=== PATIENT | female | born 1945 | race Caucasian/White ===

== ENCOUNTER 2020-04-16 18:52 | Emergency (ER) | payer MEDICARE, SELFPAY ==
--- NOTE | ~2020-04-16 | XR_ITS ---
EXAMINATION: XR chest 1V portable EXAM DATE: 04/16/2020 19:50 INDICATION: Weakness, confusion. TECHNIQUE: Portable AP frontal chest x-ray was obtained. Comparison is made to prior examination from 04/25/2019. FINDINGS: The lungs are clear. There are no pleural effusions. The cardiomediastinal silhouette is within normal limits. There is no pneumothorax suspected. The bones and soft tissues are unremarkab le. IMPRESSION: No acute cardiopulmonary findings. Reviewed, dictated and finalized at location A.
--- NOTE | ~2020-04-16 | CT_ITS ---
EXAMINATION: CT brain wo con EXAM DATE: 04/16/2020 19:46 INDICATION: 2-3 days of confusion. TECHNIQUE: Spiral CT of the head was performed without contrast. Axial, coronal and sagittal images were reviewed. The dose-length product (DLP) for this examination was 605.33 mGy-cm. The exposure w as tailored according to patient size, and iterative reconstruction (ASIR) was used as additional dos e reduction technique. Comparison is made to prior examination from 09/30/2018 . FINDINGS: There is no acute intraparenchymal hemorrhage. No evidence of intraparenchymal brain mass lesion. No evidence of acute infarction. Please note that initial head CT has limited sensitivity f or small or acute infarctions. There is an old right internal capsular lacunar infarction, but new c ompared to 2018. There is moderate periventricular and subcortical hypodensity, nonspecific but prob ably related to small vessel ischemic disease. There is ventricular prominence out of proportion to sulci which is suspected most likely central atrophy rather than hydrocephalus. Normal pressure hyd rocephalus cannot be excluded (clinical triad ataxia/gait disturbance, dementia, urinary incontinence ). There is intracranial carotid arteriosclerosis. There are no extra-axial collections. There is no mass effect or midline shift. The orbits are unremarkable. Soft tissue is unremarkable. The vi sualized sinuses and mastoid air cells are well aerated. IMPRESSION: 1. No acute intracranial findings. 2. 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 3. Old right internal capsular lacunar infarction. Reviewed, dictated and finalized at location A.
[2020-04-16 18:58] VITALS: BP 153/69; PULSE 64; RESP 18; TEMP 36.7; O2SAT 100
--- NOTE | 2020-04-16 19:07 | ECG_ITS ---
Measurements Intervals [place] Rate: 61 P: 14 RI: 164 QRS: -55 QRSD: 82 T: 22 QT: 409 QTc: 415 Interpretive Statements SINUS RHYTHM LEFT AXIS DEVIATION VOLTAGE CRITERIA FOR LVH CANNOT RULE OUT SEPTAL INFARCT, AGE INDETERMINATE BASELINE ARTIFACT- I, II, III, AVR, AVL, AVF, V1 ABNORMAL ECG Electronically Signed On 04-17-2020 6:56:24 CDT by New Jimenez D.O.
--- NOTE | 2020-04-16 19:08 | ED.AMS ---
HPI - Altered Mental Status General Chief Complaint: Altered Mental Status Stated Complaint: ams Time Seen by Provider: 04/16/20 18:57 History of Present Illness HPI narrative: Catalina Ca presents with her for episodes of confusion. These have been occurring 2-3 times a week, and last 6 to 8 hours. She has a history of stroke, but does not follow with a neurologist. She has a psychiatrist, and multiple psych meds. Her was together her medicine daily. She does not smoke drink or do drugs. She is generally weak and uses a wheelchair. She can self transfer. She is oriented here, and has no complaints. She has not been sick this week. She denies cough fever vomiting diarrhea. MD complaint: altered mental status and confusion Timing confirmed by: spouse Severity: moderate Consistency of symptoms: waxing and waning Context: other (History of stroke.) Associated symptoms: denies other symptoms Related Data Home Medications Medication Instructions Recorded Confirmed clonazepam 0.5 mg tablet 0.5 mg PO QID tablet 04/08/20 Allergies Allergy/AdvReac Type Severity Reaction Status Date / Time clindamycin Allergy Mild Verified 04/25/19 19:28 hydrocodone Allergy Mild Verified 04/25/19 19:28 amoxicillin Allergy Unknown Verified 02/23/13 14:41 ampicillin Allergy Unknown Verified 09/23/15 15:38 erythromycin base Allergy Unknown Verified 09/23/15 15:38 Macrolide Antibiotics Allergy Unknown Verified 04/25/19 19:28 morphine Allergy Unknown Verified 04/25/19 19:28 NSAIDS (Non-Steroidal Allergy Unknown Verified 09/23/15 15:38 Anti-Inflamma Penicillins Allergy Unknown Verified 04/25/19 19:28 adhesive tape AdvReac Mild BLISTERS Verified 04/25/19 19:28 Review of Systems Review of Systems: Narrative: CONSTITUTIONAL: Denies fever, chills, or sweats. EYES: Denies visual changes, redness, or discharge. ENT: Denies rhinorrhea, congestion, sore throat, or otalgia. CARDIOVASCULAR: Denies chest pain, palpitations, or edema. RESPIRATORY: Denies cough or dyspnea. GASTROINTESTINAL: Denies abdominal pain, nausea, vomiting, or diarrhea. GENITOURINARY: Denies dysuria or hematuria. SKIN: Denies rash or itching. MUSCULOSKELETAL: Denies back pain, joint pain, or myalgia. NEUROLOGIC: Denies headache, numbness, or weakness. PSYCHIATRIC: Denies anxiety or depression. [facility] Past Medical History Medical History History of stroke Family History Family History (Updated 06/19/16 @ 23:19 by DOCTOR UNKNOWN) Mother Hypertension Family history of diabetes mellitus in first degree relative Family history of pancreatic cancer Family history of heart disease in male family member before age 55 Family history of rheumatoid arthritis Family history of neuropathy Father Family history of diabetes mellitus in first degree relative Family history of coronary artery disease Family history of heart disease in male family member before age 55 Sibling Family history of coronary artery disease Hypertension Family history of heart disease in male family member before age 55 Social History Social History (Updated 04/16/20 @ 19:11 by Le Buckley MD) Smoking status: Never smoker Alcohol intake: never Substance use: never Exam Narrative: Exam Narrative: GENERAL: Well-appearing, well-nourished, and in no acute distress. Very thin hair. Unable to sit up without assistance. HEAD: Normocephalic, atraumatic. EYES: PERRLA and EOMI. ENT: Nares clear, no rhinorrhea or epistaxis. Mucous membranes moist. NECK: Supple. CHEST: Clear to auscultation. No respiratory distress. HEART: Regular rate and rhythm. No murmur heard. Normal peripheral pulses. ABDOMEN: Soft, nontender, nondistended, normal active bowel sounds. EXTREMITIES: No edema. SKIN: cool, dry, no rash. NEURO: No focal deficits. Alert and oriented x3. PSYCH: Normal mood and affect. Course Reevaluation
[2020-04-16 19:13] VITALS: BP 153/69; PULSE 65; RESP 23; TEMP 36.8; O2SAT 100
--- NOTE | 2020-04-16 19:50 | PC.NURSE ---
ATTEMPTED TO DRAW PATIENT'S BLOOD. BLOOD DRAW WAS UNSUCCESSFUL. RN NOTIFIED.
--- NOTE | 2020-04-16 20:04 | PC.NURSE ---
Pt was stuck multiple times unable to obtain blood work
--- NOTE | 2020-04-16 20:05 | PC.NURSE ---
Lab was called in order to obtain blood work and was unsuccessful
[2020-04-16 20:23] LABS: Basophils Percent Auto 0.5 % (0.2-1.2); Eosinophils Percent Auto 0.9 % (0-4.4); Hematocrit 38.8 % (37.0-47.0); Hemoglobin 12.6 g/dL (12.0-15.0); Immature Granulocyte Absolute 0.02 K/mm3 (0.00-0.031); Immature Granulocyte Percent A 0.5 % (0-0.5); Lymphocytes Absolute Auto 0.87 K/mm3 (0.9-3.2); Mean Corpuscular HGB Conc 32.5 g/dl (32-36); Mean Corpuscular Hemoglobin 30.5 pg (26-34); Mean Corpuscular Volume 93.9 fl (80-100); Mean Platelet Volume 10.3 fl (7.4-10.4); Monocytes Absolute Auto 0.3 K/mm3 (0.1-0.6); Monocytes Percent Auto 7.1 % (2.6-8.5); Neutrophils Absolute Auto 3.1 K/mm3 (1.3-6.7); Platelet Count Result 270 k/mm3 (150-375); Red Blood Count 4.13 M/mm3 (4.2-5.4); Red Cell Distribution Width 12.9 % (11.5-14.5); White Blood Count 4.4 K/mm3 (4.5-10.0)
--- NOTE | 2020-04-16 20:25 | PC.NURSE ---
pt placed on commode for urine sample
--- NOTE | 2020-04-16 20:30 | PC.NURSE ---
pt unable to void at this time. pt returned to commode
[2020-04-16 20:36] LABS: Alanine Aminotransferase 14 U/L (4-35); Albumin Level 4.2 g/dL (3.5-5.1); Alkaline Phosphatase 70 U/L (38-126); Aspartate Amino Transferase 21 U/L (14-36); Bilirubin,Total 0.5 mg/dL (0.2-1.3); Blood Urea Nitrogen 23 mg/dL (7-17); Calcium 9.5 mg/dL (8.4-10.2); Carbon Dioxide 25 mmol/L (22-30); Chloride 105 mmol/L (98-107); Estimated CRCL calculation 34 ml/min; Estimated Glomerular Filt Rate 40; Glucose 91 mg/dL (65-105); Potassium 4.9 mmol/L (3.4-5.0); Sodium 139 mmol/L (137-145)
--- NOTE | 2020-04-16 20:42 | PC.NURSE ---
pt called out and thinks she cannot void at this time.
[2020-04-16 20:48] LABS: Troponin I < 0.012 ng/mL (0.000-0.034)
[2020-04-16 21:13] LABS: Add Urine Microscopic? YES; Appearance Urine Cloudy (Clear); Bacteria Urine 4+ /hpf; Bilirubin Urine Negative (Negative); Blood Urine Negative (Negative); Budding Yeast Urine Present /hpf; Color Urine Yellow (Yellow); Glucose Urine UA Negative (Negative); Ketones Urine Negative (Negative); Leukocyte Esterase Ur 3+ LEU/UL (Negative); Mucus Urine Rare /lpf; Nitrate Urine Negative (Negative); Protein Urine Negative (Negative); Specific Grav Ur 1.017 (1.001-1.035); Squamous Epithelial Cell Urine Occasional /hpf (Few); WBC Urine >75 /hpf
[2020-04-16 21:30] VITALS: BP 150/87; PULSE 62; RESP 12; O2SAT 100
[2020-04-16 21:38] LABS: Amphetamine Screen Urine Negative (Negative); Barbiturate Screen Urine Negative (Negative); Benzodiazepines Screen Urine Negative (Negative); Cannabinoid Screen Urine Negative (Negative); Cocaine Screen Urine Negative (Negative); Methadone Screen Urine Negative (Negative); Opiate Screen Urine Negative (Negative); Phencyclidine Screen Urine Negative (Negative)
[2020-04-16 22:00] VITALS: BP 153/59; PULSE 64; RESP 12; O2SAT 100
== END 2020-04-16 22:00 | disposition home or self-care (01) ==
PROVIDERS: Emergency Provider Emergency Medicine; PCP Family Medicine
DX: N39.0 Urinary tract infection, site not specified (principal); R41.82 Altered mental status, unspecified; R53.1 Weakness; Z86.73 Personal history of transient ischemic attack (TIA), and cerebral infarction without residual deficits; Z79.899 Other long term (current) drug therapy
CPT/HCPCS: 36415; 51701; 70450; 71045; 80053; 80307; 81001; 84443; 84484; 85025; 87077; 87086; 87088; 87186; 93005; 99284; A9270

== ENCOUNTER 2021-02-19 22:03 | Emergency (ER) | payer MEDICARE, SELFPAY ==
[2021-02-19 22:02] VITALS: BP 147/78; PULSE 70; RESP 16; TEMP 36.8; O2SAT 100
--- NOTE | 2021-02-19 22:08 | ED.AMS ---
HPI - Altered Mental Status General Chief Complaint: Altered Mental Status Stated Complaint: confusion Time Seen by Provider: 02/19/21 22:06 History of Present Illness HPI narrative: 75 yo female w/ h/o recurrent UTI, depression, anxiety, htn presents to the ED for a change in perception. She reports that this evening while at home she did not feel like she was at home. She says that she lives in a trailer and she felt as though it was in the wrong place, this was despite knowing where she was the whole time. She has had similar symptoms in the past due to UTIs. She also reports dysuria, lower abdominal cramping, and urinary frequency. Related Data Allergies Allergy/AdvReac Type Severity Reaction Status Date / Time clindamycin Allergy Mild Unknown Verified 12/02/20 14:09 hydrocodone Allergy Mild Unknown Verified 12/02/20 14:09 amoxicillin Allergy Unknown Unknown Verified 12/02/20 14:09 ampicillin Allergy Unknown Unknown Verified 12/02/20 14:09 erythromycin base Allergy Unknown Unknown Verified 12/02/20 14:09 Macrolide Antibiotics Allergy Unknown Unknown Verified 12/02/20 14:09 morphine Allergy Unknown Unknown Verified 12/02/20 14:09 NSAIDS (Non-Steroidal Allergy Unknown Unknown Verified 12/02/20 14:09 Anti-Inflamma Penicillins Allergy Unknown Unknown Verified 12/02/20 14:09 adhesive tape AdvReac Mild BLISTERS Verified 12/02/20 14:09 Review of Systems Review of Systems: All systems reviewed & are unremarkable except as noted in HPI and below Constitutional: Constitutional: Denies chills, Denies fever(s) and Denies weakness ENT: Reports system reviewed and no additional complaints, except as documented Cardiovascular: Cardiovascular: Denies chest pain Respiratory: Respiratory: Denies dyspnea Gastrointestinal: Gastrointestinal: Reports abdominal pain, Denies constipation, Denies diarrhea, Denies nausea and Denies vomiting Genitourinary: Genitourinary: Denies hematuria, Reports nocturia, Reports dysuria and Denies flank pain Musculoskeletal: Musculoskeletal: Denies back pain Neurologic: Reports confusion, Denies dizziness and Denies weakness PMFSH Past Medical History Medical History BMI 23.0-23.9, adult Delusional disorder Encephalopathy History of stroke Urinary tract infection, recurrent Family History Family History Mother Hypertension Family history of diabetes mellitus in first degree relative Family history of pancreatic cancer Family history of heart disease in male family member before age 55 Family history of rheumatoid arthritis Family history of neuropathy Father Family history of diabetes mellitus in first degree relative Family history of coronary artery disease Family history of heart disease in male family member before age 55 Sibling Family history of coronary artery disease Hypertension Family history of heart disease in male family member before age 55 Social History Social History Smoking status: Never smoker Second hand tobacco smoke exposure: Yes Alcohol intake: never Substance use: never Additional occupation/education comments: [employer] Gender identity (if verbalized by the patient): Female Exam Const: General: no acute distress and alert Orientation/consciousness: patient oriented x3 HENMT: Head: normal to inspection Resp: Effort & Inspection: normal respiratory effort Auscultation: clear to auscultation bilaterally Cardio: Rate: regular rate Rhythm: regular rhythm GI: Inspection: non-distended GI Palp: Yes Soft to palpation, Yes Tenderness to palpation present (GI) (suprapubic), No Guarding due to palpation present (GI) and No Rebound tenderness present Skin: General skin exam: normal color Neuro: General: patient oriented x3, moves all extremities, no focal m
[2021-02-19 22:40] LABS: Basophils Percent Auto 0.5 % (0.2-1.2); Eosinophils Absolute Auto 0.2 K/mm3 (0-0.3); Eosinophils Percent Auto 2.4 % (0-4.4); Hematocrit 40.4 % (37.0-47.0); Hemoglobin 13.3 g/dL (12.0-15.0); Immature Granulocyte Absolute 0.04 K/mm3 (0.00-0.031); Immature Granulocyte Percent A 0.7 % (0-0.5); Lymphocytes Absolute Auto 1.34 K/mm3 (0.9-3.2); Lymphocytes Percent Auto 21.9 % (18.3-44.2); Mean Corpuscular HGB Conc 32.9 g/dl (32-36); Mean Corpuscular Hemoglobin 30.6 pg (26-34); Mean Corpuscular Volume 92.9 fl (80-100); Mean Platelet Volume 9.8 fl (7.4-10.4); Monocytes Absolute Auto 0.5 K/mm3 (0.1-0.6); Monocytes Percent Auto 7.5 % (2.6-8.5); Neutrophils Absolute Auto 4.1 K/mm3 (1.3-6.7); Platelet Count Result 301 k/mm3 (150-375); Red Blood Count 4.35 M/mm3 (4.2-5.4); Red Cell Distribution Width 13.2 % (11.5-14.5); White Blood Count 6.1 K/mm3 (4.5-10.0)
[2021-02-19] MEDS: SODIUM CHLORIDE 0.9% IV 1,000 ML 999 ML IV CONT (22:47)
[2021-02-19 22:52] LABS: Alanine Aminotransferase 15 U/L (4-35); Albumin Level 4.2 g/dL (3.5-5.1); Alkaline Phosphatase 63 U/L (38-126); Anion Gap 6 mmol/L (8-16); Aspartate Amino Transferase 22 U/L (14-36); Bilirubin,Total 0.6 mg/dL (0.2-1.3); Blood Urea Nitrogen 30 mg/dL (7-17); Calcium 9.4 mg/dL (8.4-10.2); Carbon Dioxide 29 mmol/L (22-30); Chloride 104 mmol/L (98-107); Estimated CRCL calculation 27 ml/min; Estimated Glomerular Filt Rate 37; Glucose 125 mg/dL (65-105); Sodium 139 mmol/L (137-145)
[2021-02-19 23:00] VITALS: BP 150/63; PULSE 65; RESP 15; O2SAT 99
--- NOTE | 2021-02-19 23:00 | PC.NURSE ---
Patient gotten up to bedside commode/patient refuses straight cath-blanket around shoulders, patients feet placed on step stool and covered with towel-call [place] at bedside within reach. at bedside
--- NOTE | 2021-02-19 23:20 | PC.NURSE ---
Patient gotten back on stretcher-unable to urinate-still refuses straight cath
[2021-02-20] VITALS: BP 150/63; PULSE 67; RESP 16; O2SAT 99
[2021-02-20 01:00] VITALS: BP 137/101; PULSE 66; RESP 16; O2SAT 100
[2021-02-20 01:30] LABS: Add Urine Microscopic? YES; Appearance Urine Cloudy (Clear); Bacteria Urine 4+ /hpf; Bilirubin Urine Negative (Negative); Blood Urine Negative (Negative); Color Urine Yellow (Yellow); Glucose Urine UA Negative (Negative); Ketones Urine Negative (Negative); Leukocyte Esterase Ur 3+ LEU/UL (Negative); Mucus Urine Rare /lpf; Nitrate Urine Positive (Negative); Protein Urine Negative (Negative); Specific Grav Ur 1.014 (1.001-1.035); Squamous Epithelial Cell Urine Occasional /hpf (Few); WBC Urine >75 /hpf
[2021-02-20] MEDS: SODIUM CHLORIDE 0.9% IV 1,000 ML 999 ML IV CONT (01:30)
[2021-02-20 02:00] VITALS: BP 123/90; PULSE 65; RESP 16; O2SAT 99
[2021-02-20] MEDS: CIPROFLOXACIN 500 MG TAB PO (02:33)
== END 2021-02-20 02:40 | disposition home or self-care (01) ==
PROVIDERS: Emergency Provider Emergency Medicine; PCP Family Medicine
DX: N39.0 Urinary tract infection, site not specified (principal); Z87.440 Personal history of urinary (tract) infections
CPT/HCPCS: 36415; 51701; 80053; 81001; 85025; 87077; 87086; 87088; 87186; 96360; 96361; 99283; A9270; J7030

== ENCOUNTER 2021-11-19 17:39 | Emergency (ER) | payer MEDICARE, SELFPAY ==
--- NOTE | ~2021-11-19 | XR_ITS ---
EXAMINATION: XR hip RT 2V w AP pelvis INDICATION: Right groin pain TECHNIQUE: AP view of the pelvis and two views of the right hip are obtained. COMPARISON: 08/26/2018 FINDINGS: Bone alignment is normal. There is moderate osteoarthritis of the hips. Calcified atheroscl erosis is noted. IMPRESSION: 1. No acute osseous abnormality. Reviewed, dictated and finalized at location [facility] [employer]
[2021-11-19 18:48] VITALS: BP 121/90; PULSE 90; RESP 16; TEMP 36.6; O2SAT 100
[2021-11-19 20:43] VITALS: BP 135/63; PULSE 86; RESP 18; O2SAT 99
[2021-11-19 22:34] VITALS: BP 157/94; PULSE 90; RESP 18; O2SAT 99
[2021-11-19] MEDS: CYCLOBENZAPRINE HCL 10 MG TABLET PO (22:34)
[2021-11-19 23:28] VITALS: PULSE 88; RESP 18
--- NOTE | 2021-11-19 23:54 | PC.NURSE ---
report to stacy shepherd at [facility]
--- NOTE | 2021-11-20 00:41 | ED.GENADULT ---
HPI - General Adult General Chief complaint: Extremity Injury, Lower Stated complaint: fall/hip pain Time Seen by Provider: 11/19/21 21:08 History of Present Illness HPI narrative: Patient is a 76-year-old female who presents ER with right hip pain. She is oriented to self and place. She reports that she fell earlier today however retirement reports she fell a month ago. She has been getting tramadol for chronic pain but is not helping. No other complaints at this time. Related Data Allergies Allergy/AdvReac Type Severity Reaction Status Date / Time clindamycin Allergy Mild Unknown Verified 03/10/21 16:50 hydrocodone Allergy Mild Unknown Verified 03/10/21 16:50 amoxicillin Allergy Unknown Unknown Verified 03/10/21 16:50 ampicillin Allergy Unknown Unknown Verified 03/10/21 16:50 erythromycin base Allergy Unknown Unknown Verified 03/10/21 16:50 Macrolide Antibiotics Allergy Unknown Unknown Verified 03/10/21 16:50 morphine Allergy Unknown Unknown Verified 03/10/21 16:50 NSAIDS (Non-Steroidal Allergy Unknown Unknown Verified 03/10/21 16:50 Anti-Inflamma Penicillins Allergy Unknown Unknown Verified 03/10/21 16:50 adhesive tape AdvReac Mild BLISTERS Verified 03/10/21 16:50 Review of Systems Review of Systems: ROS unobtainable: Yes unobtainable due to mental status PMFSH Past Medical History Medical History (Updated 11/20/21 @ 00:55 by Mamadou Benjamin MD) Ataxia BMI 23.0-23.9, adult Delusional disorder Encephalopathy History of stroke Urinary tract infection, recurrent Family History Family History Mother Hypertension Family history of diabetes mellitus in first degree relative Family history of pancreatic cancer Family history of heart disease in male family member before age 55 Family history of rheumatoid arthritis Family history of neuropathy Father Family history of diabetes mellitus in first degree relative Family history of coronary artery disease Family history of heart disease in male family member before age 55 Sibling Family history of coronary artery disease Hypertension Family history of heart disease in male family member before age 55 Social History Social History Second hand tobacco smoke exposure: Yes Alcohol intake: never Substance use: never Additional occupation/education comments: [employer] Gender identity (if verbalized by the patient): Female Exam Narrative: GENERAL: Chronically ill-appearing, well-nourished, and in no acute distress. HEAD: Normocephalic, atraumatic. CHEST: Clear to auscultation. No respiratory distress. HEART: Regular rate and rhythm. Normal peripheral pulses. ABDOMEN: Soft, nontender, nondistended. EXTREMITIES: Focused exam right lower extremity reveals normal extension and ability to forward flex to 90 degrees until she has pain. No redness or tenderness around the joint. No shortening the leg. SKIN: Warm, dry, no rash. NEURO: Alert and oriented x2. PSYCH: Normal mood and affect. Course Course Emergency Course: Unremarkable evaluation of the hip. Patient given a muscle relaxer. Discharge back to retirement. Limited pain treatment due to patient's multiple allergies. Vital Signs Vital signs: Vital Signs Temperature 97.9 F 11/19/21 18:48 Pulse Rate 90 11/19/21 18:48 Respiratory Rate 16 11/19/21 18:48 Blood Pressure 121/90 11/19/21 18:48 Pulse Oximetry 100 11/19/21 18:48 Temperature 97.9 F 11/19/21 18:48 Pulse Rate 88 11/19/21 23:28 Respiratory Rate 18 11/19/21 23:28 Blood Pressure 157/94 H 11/19/21 22:34 Pulse Oximetry 99 11/19/21 22:34 Medical Decision Making Vital Signs Vital Signs: Vital Signs Temperature 97.9 F 11/19/21 18:48 Pulse Rate 90 11/19/21 18:48 Respiratory Rate 16 11/19/21 18:48 Blood Pressure 121/90 11/19/21 18:48 Pulse Oximetry
--- NOTE | 2021-11-20 01:24 | PC.NURSE ---
waiting transport to [facility]
[2021-11-20 01:57] VITALS: BP 152/71; PULSE 88; RESP 18; O2SAT 98
--- NOTE | 2021-11-20 02:02 | PC.NURSE ---
Addendum entered by Diya Cruz 11/20/21 03:07: [facility] UPDATED ETA: 0315 Addendum entered by Diya Cruz 11/20/21 02:02: [facility] UPDATED ETA: 0215 Original Note: CALLED [facility] @0002 ACCEPTED TRANSFER: ETA 0043
== END 2021-11-20 03:34 ==
PROVIDERS: Emergency Provider Emergency Medicine; PCP Family Medicine
DX: M25.551 Pain in right hip (principal); G89.29 Other chronic pain; Z86.73 Personal history of transient ischemic attack (TIA), and cerebral infarction without residual deficits; Z87.440 Personal history of urinary (tract) infections; Z77.22 Contact with and (suspected) exposure to environmental tobacco smoke (acute) (chronic)
CPT/HCPCS: 73502; 99283; A9270

== ENCOUNTER 2022-11-08 17:37 | Emergency (ER) | payer MEDICARE, SELFPAY ==
[2022-11-08] VITALS (21 sets, daily range): BP systolic 83–127; BP diastolic 51–103; PULSE 79–88; RESP 10–22; TEMP 36.7; O2SAT 97
[2022-11-08 17:52] LABS: Glucose Point of Care 215 mg/dl (65-105)
[2022-11-08 18:09] LABS: Basophils Percent Auto 0.6 % (0.2-1.2); Eosinophils Absolute Auto 0.2 K/mm3 (0-0.3); Eosinophils Percent Auto 2.4 % (0-4.4); Hematocrit 37.7 % (37.0-47.0); Hemoglobin 12.6 g/dL (12.0-15.0); Immature Granulocyte Absolute 0.08 K/mm3 (0.00-0.031); Immature Granulocyte Percent A 1.1 % (0-0.5); Lymphocytes Absolute Auto 1.46 K/mm3 (0.9-3.2); Lymphocytes Percent Auto 20.3 % (18.3-44.2); Mean Corpuscular HGB Conc 33.4 g/dl (32-36); Mean Corpuscular Hemoglobin 30.2 pg (26-34); Mean Corpuscular Volume 90.4 fl (80-100); Mean Platelet Volume 11.5 fl (7.4-10.4); Monocytes Absolute Auto 0.5 K/mm3 (0.1-0.6); Monocytes Percent Auto 7.5 % (2.6-8.5); Neutrophils Absolute Auto 4.9 K/mm3 (1.3-6.7); Neutrophils Percent Auto 68.1 % (45.5-73.1); Platelet Count Result 237 k/mm3 (150-375); Red Blood Count 4.17 M/mm3 (4.2-5.4); White Blood Count 7.2 K/mm3 (4.5-10.0)
[2022-11-08 18:24] LABS: Beta-Hydroxybutyrate/Acetoacetate 0.11 mmol/L (0.02-0.27)
[2022-11-08 19:05] LABS: Hemoglobin A1C > 14.0 % (<5.7)
[2022-11-08 19:08] LABS: Alanine Aminotransferase 17 U/L (6-35); Albumin Level 3.5 g/dL (3.5-5.1); Alkaline Phosphatase 103 U/L (38-126); Anion Gap 6 mmol/L (8-16); Aspartate Amino Transferase 23 U/L (14-36); Bilirubin,Total 0.5 mg/dL (0.2-1.3); Blood Urea Nitrogen 19 mg/dL (7-17); Carbon Dioxide 28 mmol/L (22-30); Chloride 97 mmol/L (98-107); Estimated CRCL calculation 43 ml/min; Estimated Glomerular Filt Rate 54; Glucose 226 mg/dL (65-110); Magnesium 1.5 mg/dL (1.6-2.3); Phosphorus 3.6 mg/dL (2.5-4.5); Potassium 4.2 mmol/L (3.4-5.0); Sodium 131 mmol/L (137-145)
--- NOTE | 2022-11-08 21:34 | ED.GENADULT ---
HPI - General Adult General Chief complaint: Recheck/Abnormal Lab/Rx Stated complaint: hyperglycemia Time Seen by Provider: 11/08/22 21:20 History of Present Illness HPI narrative: Patient is a 77-year-old female who presents ER with hyperglycemia. Blood sugar at her residential was over 600. She was given some insulin and sent here for further evaluation. Chart review shows med list that includes metformin 1000 mg twice daily patient reports she has history of diabetes but apparently the residential reports she has no previous history. Patient has no complaints of pain at this time. She is oriented x3 but has poor insight into what is occurring due to her chronic medical conditions. Related Data Allergies Allergy/AdvReac Type Severity Reaction Status Date / Time clindamycin Allergy Mild Unknown Verified 03/10/21 16:50 hydrocodone Allergy Mild Unknown Verified 03/10/21 16:50 amoxicillin Allergy Unknown Unknown Verified 03/10/21 16:50 ampicillin Allergy Unknown Unknown Verified 03/10/21 16:50 erythromycin base Allergy Unknown Unknown Verified 03/10/21 16:50 Macrolide Antibiotics Allergy Unknown Unknown Verified 03/10/21 16:50 morphine Allergy Unknown Unknown Verified 03/10/21 16:50 NSAIDS (Non-Steroidal Allergy Unknown Unknown Verified 03/10/21 16:50 Anti-Inflamma Penicillins Allergy Unknown Unknown Verified 03/10/21 16:50 adhesive tape AdvReac Mild BLISTERS Verified 03/10/21 16:50 Review of Systems Review of Systems: All systems reviewed & are unremarkable except as noted in HPI and below Constitutional: Constitutional: Denies chills, Denies fatigue and Denies fever(s) Cardiovascular: Cardiovascular: Denies chest pain and Denies radiating jaw, neck or arm pain Respiratory: Respiratory: Denies cough and Denies dyspnea Gastrointestinal: Gastrointestinal: Denies abdominal pain, Denies nausea and Denies vomiting Musculoskeletal: Musculoskeletal: Denies back pain, Denies arthralgias and Denies muscle cramps Neurologic: Denies focal weakness and Denies numbness PMFSH Past Medical History Medical History (Updated 11/08/22 @ 22:52 by Mamadou Benjamin MD) Ataxia BMI 23.0-23.9, adult Delusional disorder Encephalopathy History of stroke Urinary tract infection, recurrent Family History Family History Mother Hypertension Family history of diabetes mellitus in first degree relative Family history of pancreatic cancer Family history of heart disease in male family member before age 55 Family history of rheumatoid arthritis Family history of neuropathy Father Family history of diabetes mellitus in first degree relative Family history of coronary artery disease Family history of heart disease in male family member before age 55 Sibling Family history of coronary artery disease Hypertension Family history of heart disease in male family member before age 55 Social History Social History Second hand tobacco smoke exposure: Yes Alcohol intake: never Substance use: never Additional occupation/education comments: [employer] Gender identity (if verbalized by the patient): Female Exam Narrative: GENERAL: Well-appearing, well-nourished, and in no acute distress. HEAD: Normocephalic, atraumatic. EYES: PERRL and EOMI. ENT: Mucous membranes moist. CHEST: Clear to auscultation. No respiratory distress. HEART: Regular rate and rhythm. Normal peripheral pulses. ABDOMEN: Soft, nontender, nondistended. EXTREMITIES: Normal range of motion. No edema. NEURO: Alert and oriented x3. PSYCH: Normal mood and affect. Course Course Emergency Course: Blood glucose improving, no ketones, pt in no distress. D/c back to residential. Vital Signs Vital signs: Vital Signs Temperature 98.1 F 11/08/22 17:43 Pulse Rate 84 11/08/22 17:43 Respiratory Rate 17 11/08/22 17:43
[2022-11-08 22:43] LABS: Glucose Point of Care 316 mg/dl (65-105)
--- NOTE | 2022-11-08 23:28 | PC.NURSE ---
called [facility] to request transport. ETA midnight.
[2022-11-09 00:01] VITALS: BP 118/50; PULSE 78; RESP 14
[2022-11-09 00:02] VITALS: PULSE 78; RESP 15
--- NOTE | 2022-11-09 00:05 | PC.NURSE ---
[facility] here
[2022-11-09 00:12] VITALS: BP 114/54
--- NOTE | 2022-11-09 00:22 | PC.NURSE ---
[facility] called at this time. Spoke with Lisandra, nursing staff and explained d/c instructions. Staff verbalized understanding at this time.
--- NOTE | 2022-11-09 00:23 | PC.NURSE ---
Gabriela , EMS,here for pt d/c transfer back to [facility] at this time.
== END 2022-11-09 00:24 ==
PROVIDERS: Emergency Medicine; Emergency Provider Emergency Medicine; PCP Family Medicine
DX: E11.9 Type 2 diabetes mellitus without complications (principal)
CPT/HCPCS: 36415; 80053; 82010; 82948; 83036; 83735; 84100; 85025; 99283

== ENCOUNTER 2022-12-20 20:38 | Emergency (ER) | payer MEDICARE, MEDICAID, SELFPAY ==
--- NOTE | ~2022-12-20 | CT_ITS ---
EXAMINATION: CT cervical spine wo con DATE: 12/20/2022 21:30 INDICATION: Neck pain. Fall. TECHNIQUE: Computed tomography (CT) of the cervical spine was performed without intravenous contrast. Automated exposure control and iterative reconstruction technique were employed. The dose-length pro duct was 185.29 mGy-cm. COMPARISON: None FINDINGS: There is 2 mm retrolisthesis of C2 on C3. There is 7 degrees levocurvature of cervical spin e. There are changes of anterior fusion from C4 to C6 with healed interbody bone graft. There is mode rately decreased disc height at C2-C3 and C3-C4, severely decreased disc height at C6-C7, and moderat heraclio decreased disc height at C7-T1. The following disc levels are specifically discussed: C2-C3: There is mild bilateral uncovertebral joint osteoarthritis. There is mild bilateral facet join t osteoarthritis. There is mild bilateral neural foraminal stenosis. There is mild central canal sten osis. C3-C4: There is mild bilateral uncovertebral joint osteoarthritis. There is severe bilateral facet benji int osteoarthritis. There is moderate right and mild left neural foraminal stenosis. There is mild ce ntral canal stenosis. C4-C5: There is mild lateral uncovertebral joint hypertrophy. There is mild bilateral facet joint ost eoarthritis. There is no neural foraminal stenosis. There is mild central canal stenosis. C5-C6: There is mild bilateral uncovertebral joint hypertrophy. There is mild bilateral facet joint h ypertrophy. There is mild left neural foraminal stenosis. There is no central canal stenosis. C6-C7: There is severe bilateral uncovertebral joint osteoarthritis. There is severe bilateral facet joint osteoarthritis. There is mild bilateral neural foraminal stenosis. There is mild central canal stenosis. C7-T1: There is mild bilateral uncovertebral joint osteoarthritis. There is severe bilateral facet benji int osteoarthritis. There is mild bilateral neural foraminal stenosis. There is no central canal sten osis. IMPRESSION: 1. No fracture. 2. Severe cervical spondylosis. 3. Anterior fusion procedure from C4 to C6. Reviewed, dictated and finalized at location A. DINGS AND GROUNDS DIRECTOR
--- NOTE | ~2022-12-20 | CT_ITS ---
EXAMINATION: CT brain wo con DATE: 12/20/2022 21:29 INDICATION: Head injury. TECHNIQUE: Computed tomography (CT) of the head was performed without intravenous contrast. The mA wa s adjusted according to patient size. Iterative reconstruction technique was employed. The dose-lengt h product was 605.33 mGy-cm. COMPARISON: Head CT 04/16/2020 FINDINGS: There is a small old infarct in right cerebellum. There are old infarcts in the bilateral b sofia ganglia and anterior limb right internal capsule. There are scattered areas of low attenuation i n the cerebral white matter, which is within normal limits for the patient's age. There is no intracr anial hemorrhage, acute infarction, or abnormal intracranial mass lesion. The ventricles are normal i n size. The orbits are normal. There is a right frontal scalp hematoma. There is mild mucosal thicken ing in the paranasal sinuses. The mastoid air cells are normal. IMPRESSION: 1. 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 Reviewed, dictated and finalized at location A. TRAINER IMPRESSION: 1. 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
--- NOTE | ~2022-12-20 | XR_ITS ---
EXAMINATION: XR shoulder RT min 2V DATE: 12/20/2022 21:20 INDICATION: Right shoulder pain. TECHNIQUE: 4 views of right shoulder were obtained. COMPARISON: None. FINDINGS: Bone alignment is normal. No fracture. There is mild osteoarthritis of acromioclavicular benji int and glenohumeral joint. IMPRESSION: 1. Mild polyarticular osteoarthritis. Reviewed, dictated and finalized at location A. ING WORKER
--- NOTE | ~2022-12-20 | XR_ITS ---
EXAMINATION: XR chest 1V portable DATE: 12/20/2022 21:20 INDICATION: Chest pain. Fall. TECHNIQUE: A single frontal view of the chest was obtained. COMPARISON: Chest single view 04/16/2020 FINDINGS: There is no pneumonia, pleural effusion, or pneumothorax. The heart size is normal. Surgica l clips in the right upper quadrant are likely from cholecystectomy. IMPRESSION: 1. No acute cardiopulmonary disease. Reviewed, dictated and finalized at location A. ER COMPLIANCE REPRESENTATIVE
--- NOTE | ~2022-12-20 | XR_ITS ---
EXAMINATION: XR shoulder LT min 2V DATE: 12/20/2022 21:20 INDICATION: Left shoulder pain. TECHNIQUE: 3 views of left shoulder were obtained. COMPARISON: Left shoulder radiographs 09/16/2016 FINDINGS: Bone alignment is normal. No fracture. There is mild osteoarthritis of glenohumeral joint a nd acromioclavicular joint. IMPRESSION: 1. Mild polyarticular osteoarthritis. Reviewed, dictated and finalized at location A. BI DEVELOPER
[2022-12-20 20:43] VITALS: BP 170/92; PULSE 96; RESP 19; TEMP 36.9; O2SAT 100
[2022-12-20 20:51] VITALS: BP 170/92; PULSE 101; RESP 14; O2SAT 100
--- NOTE | 2022-12-20 20:54 | ED.FALL ---
HPI - Fall General Chief Complaint: Fall Stated Complaint: glf History of Present Illness HPI Narrative: 77-year-old female presented to the emergency department from a local alf after having an unwitnessed ground-level fall. Patient states she was reaching for something and fell causing her to strike her head. Patient denies any loss of consciousness but does have a hematoma on her right forehead. Patient is also complaining of neck shoulder and chest wall tenderness. Patient is a poor historian and is unable to say whether this pain is acute or chronic. Patient denies any abdominal pain or any other pain or injury of the extremities. Patient does have history of TIAs. Patient has history of hypertension and diabetes. Related Data Allergies Allergy/AdvReac Type Severity Reaction Status Date / Time clindamycin Allergy Mild Unknown Verified 12/20/22 21:31 hydrocodone Allergy Mild Unknown Verified 12/20/22 21:31 amoxicillin Allergy Unknown Unknown Verified 12/20/22 21:31 ampicillin Allergy Unknown Unknown Verified 12/20/22 21:31 erythromycin base Allergy Unknown Unknown Verified 12/20/22 21:31 Macrolide Antibiotics Allergy Unknown Unknown Verified 12/20/22 21:31 morphine Allergy Unknown Unknown Verified 12/20/22 21:31 NSAIDS (Non-Steroidal Allergy Unknown Unknown Verified 12/20/22 21:31 Anti-Inflamma Penicillins Allergy Unknown Unknown Verified 12/20/22 21:31 adhesive tape AdvReac Mild BLISTERS Verified 12/20/22 21:31 Review of Systems Review of Systems: CONSTITUTIONAL: Denies fever, chills, or sweats. EYES: Denies visual changes, redness, or discharge. ENT: Denies rhinorrhea, congestion, sore throat, or otalgia. CARDIOVASCULAR: Denies chest pain, palpitations, or edema. RESPIRATORY: Denies cough or dyspnea. GASTROINTESTINAL: Denies abdominal pain, nausea, vomiting, or diarrhea. GENITOURINARY: Denies dysuria or hematuria. SKIN: Denies rash or itching. MUSCULOSKELETAL: See HPI NEUROLOGIC: Denies headache, numbness, or weakness. [facility] Past Medical History Medical History (Updated 12/21/22 @ 00:35 by Wallace Gaona MD) Ataxia BMI 23.0-23.9, adult Delusional disorder Encephalopathy History of stroke Urinary tract infection, recurrent Family History Family History Mother Hypertension Family history of diabetes mellitus in first degree relative Family history of pancreatic cancer Family history of heart disease in male family member before age 55 Family history of rheumatoid arthritis Family history of neuropathy Father Family history of diabetes mellitus in first degree relative Family history of coronary artery disease Family history of heart disease in male family member before age 55 Sibling Family history of coronary artery disease Hypertension Family history of heart disease in male family member before age 55 Social History Social History Second hand tobacco smoke exposure: Yes Alcohol intake: never Substance use: never Living arrangements: with family Occupation/Education: retired Additional occupation/education comments: [employer] Gender identity (if verbalized by the patient): Female Exam Narrative: APPEARANCE: Well appearing, no pain, no distress, well-nourished. HEAD: Patient does have a hematoma on the left forehead. No laceration. Patient is in a c-collar EYES: PERRLA/EOMI, conjunctivae clear. NOSE: Normal no drainage EARS:TMS clear with good light reflex. NECK: Supple. No adenopathy, no masses. RESPIRATORY: Airway patent, respirations nonlabored. Clear to auscultation bilaterally, no rales, rhonchi, wheezing. CARDIOVASCULAR: Regular rate and rhythm without murmurs rubs or gallops. ABDOMINAL: Soft, nontender, nondistended, normal bowel sounds MUSCULOSKELETAL: Tenderness to the shoulders bilaterally. No deformity or crepitus. NEURO
[2022-12-20 21:01] VITALS: BP 172/89; PULSE 115; RESP 15; O2SAT 100
[2022-12-20] MEDS: fentaNYL CITRATE INJ (*CRX) 100 MCG/2 ML VIAL 50 MCG IV PUSH (22:29)
== END 2022-12-20 22:45 ==
LOC: ANHED 21:59
PROVIDERS: Emergency Provider Emergency Medicine; PCP Internal Medicine
DX: S00.83XA Contusion of other part of head, initial encounter (principal); S49.92XA Unspecified injury of left shoulder and upper arm, initial encounter; S49.91XA Unspecified injury of right shoulder and upper arm, initial encounter; R07.89 Other chest pain; I10 Essential (primary) hypertension; E11.9 Type 2 diabetes mellitus without complications; F22 Delusional disorders; Z86.73 Personal history of transient ischemic attack (TIA), and cerebral infarction without residual deficits; Z87.440 Personal history of urinary (tract) infections; Z77.22 Contact with and (suspected) exposure to environmental tobacco smoke (acute) (chronic); Z79.84 Long term (current) use of oral hypoglycemic drugs; W18.39XA Other fall on same level, initial encounter; Z98.1 Arthrodesis status; M19.012 Primary osteoarthritis, left shoulder; M19.011 Primary osteoarthritis, right shoulder; M47.812 Spondylosis without myelopathy or radiculopathy, cervical region
CPT/HCPCS: 70450; 71045; 72125; 73030; 96374; 99284; J3010

== ENCOUNTER 2025-08-12 11:47 | Inpatient (IN) | payer MEDICARE, MEDICAID, SELFPAY ==
[2025-08-12] VITALS (8 sets, daily range): BP systolic 122–158; BP diastolic 47–89; PULSE 62–71; RESP 12–14; TEMP 36.5–36.8; O2SAT 94–100
--- NOTE | ~2025-08-12 | XR_ITS ---
Examination: XR chest 1V Clinical History: lethargy Comparison: 12/20/2022 Technique: Portable AP Findings: Heart size normal. Lungs clear. No acute bony abnormality. IMPRESSION: 1. No acute cardiopulmonary findings given portable technique. Reviewed, dictated and finalized at location R.
--- NOTE | ~2025-08-12 | CT_ITS ---
EXAMINATION: CT brain wo naa, 08/12/2025 15:30 CDT HISTORY: Difficult to arouse COMPARISON: No comparisons available. Technique: Axial images obtained of the brain without contrast. One or more of the following dose reduction techniques were used: automated exposure control, adjustment of the mA and/or kV according to patient size, use of iterative reconstruction technique. Findings: Right cerebellar lacunar infarcts. No bilateral basal ganglia lacunar infarcts. No acute infarct or hemorrhage. No midline shift or mass effect. No extra-axial fluid collections. Mastoid air cells unremarkable. Sinuses and orbits unremarkable. No acute fracture. No significant facial or scalp soft tissue swelling evident. No radiopaque foreign body is seen. Impression: 1.No acute intracranial abnormality. Reviewed, dictated and finalized at location A. Impression: 1.No acute intracranial abnormality.
--- NOTE | 2025-08-12 11:58 | ED.AMS ---
HPI - Altered Mental Status General Chief Complaint: Altered Mental Status Stated Complaint: AMS Time Seen by Provider: 08/12/25 11:53 Source: EMS Mode of arrival: EMS Limitations: altered mental status and clinical condition History of Present Illness HPI narrative: 80 years old white female came from senior care by ambulance with a chief complaint of difficult to be aroused. halfway staff said patient was sitting in her wheelchair unarousable, only responsive to pain. EMS report that patient became arousable to verbal but was lethargic On arrival to the ED patient is awake, oriented to her name only. Denying any symptoms. Related Data Home Medications ?Medication ?Instructions ?Recorded ?Confirmed ?Last Taken ?Type Al hyd-Mg tr-alg ac-sod bicarb 80 2 tablet PO PRN 08/12/25 08/12/25 Unknown History mg-14.2 mg chewable tablet acetaminophen 500 mg tablet 500 mg PO TID PRN pain 08/12/25 08/12/25 Unknown History duloxetine 30 mg capsule,delayed 30 mg PO DAILY 08/12/25 08/12/25 Unknown History release duloxetine 60 mg capsule,delayed 60 mg PO DAILY 08/12/25 08/12/25 Unknown History release furosemide 20 mg tablet 20 mg PO DAILY 08/12/25 08/12/25 Unknown History gabapentin 100 mg capsule 200 mg PO TID 08/12/25 08/12/25 Unknown History glucagon 1 mg solution for 1 mg IM PRN 08/12/25 08/12/25 Unknown History injection (Glucagon Emergency Kit) insulin aspart U-100 100 unit/mL See Rx Instructions .Route .COMPLEX 08/12/25 08/12/25 Unknown History subcutaneous solution insulin glargine-yfgn 100 unit/mL 25 unit subcut QPM 08/12/25 08/12/25 Unknown History subcutaneous solution lansoprazole 15 mg capsule,delayed 15 mg PO DAILY 08/12/25 08/12/25 Unknown History release levothyroxine 50 mcg tablet 75 mcg PO DAILY 08/12/25 08/12/25 Unknown History mirtazapine 7.5 mg tablet 7.5 mg PO HS 08/12/25 08/12/25 Unknown History tramadol 50 mg tablet 50 mg PO BID 08/12/25 08/12/25 Unknown History Allergies Allergy/AdvReac Type Severity Reaction Status Date / Time clindamycin Allergy Mild Unknown Verified 08/12/25 18:51 hydrocodone Allergy Mild nausea Verified 08/12/25 18:51 amoxicillin Allergy Unknown Unknown Verified 08/12/25 18:51 ampicillin Allergy Unknown Unknown Verified 08/12/25 18:51 erythromycin base Allergy Unknown Unknown Verified 08/12/25 18:51 Macrolide Antibiotics Allergy Unknown Unknown Verified 08/12/25 18:51 morphine Allergy Unknown nausea Verified 08/12/25 18:51 NSAIDS (Non-Steroidal Allergy Unknown Unknown Verified 08/12/25 18:51 Anti-Inflamma Penicillins Allergy Unknown Unknown Verified 08/12/25 18:51 adhesive tape AdvReac Mild BLISTERS Verified 08/12/25 18:51 Review of Systems Review of Systems: All systems reviewed & are unremarkable except as noted in HPI and below PMFSH Past Medical History Medical History Ataxia BMI 23.0-23.9, adult Urinary tract infection, recurrent Delusional disorder Encephalopathy History of stroke Family History Family History Mother Hypertension Family history of diabetes mellitus in first degree relative Family history of pancreatic cancer Family history of heart disease in male family member before age 55 Family history of rheumatoid arthritis Family history of neuropathy Father Family history of diabetes mellitus in first degree relative Family history of coronary artery disease Family history of heart disease in male family member before age 55 Sibling Family history of coronary artery disease Hypertension Family history of heart disease in male family member before age 55 Social History Social History Smoking status: Never smoker Second hand tobacco smoke exposure: No Alcohol intake: unknown Substance use: unknown Substance use type: does not use Living arrangements: with family Occupation/Education: retired Additional occupation/education comments: [employer] Gender identity (if verbalized by the patient): Female Spiritual care concerns: No Exam Narrative: General appearance: Well-developed, well-nourished, does not look in pain or distress Skin: Normal color Head: Normocephalic, nontraumatic Eyes: Clear conjunctiva ENT: Oropharynx normal, ears normal, nose normal Neck: Supple, nontender Chest and respiratory: Airway patent, no respiratory distress, no accessory muscle use Heart: Regular rate/rhythm Abdomen: Soft, nontender, no organomegaly, quiet bowel sounds Vascular: Normal peripheral pulses, normal capillary refill. Musculoskeletal: Unable to move any extremity Neurologic: Alert and oriented to her name only Course Vital Signs Vital signs: Vital Signs Temperature 36.5 C 08/12/25 11:45 Pulse Rate 62 08/12/25 11:45 Respiratory Rate 14 08/12/25 11:45 Blood Pressure 134/47 L 08/12/25 11:45 Pulse Oximetry 100 08/12/25 11:45 Oxygen Delivery Room Air 08/12/25 11:45 Temperature 36.4 C L 08/14/25 05:25 Pulse Rate 80 08/14/25 08:00 Respiratory Rate 16 08/14/25 08:00 Blood Pressure 143/54 H 08/14/25 05:25 Pulse Oximetry 94 08/14/25 08:00 Oxygen Delivery Room Air 08/14/25 08:00 Fraction of Inspired Oxygen 21 08/14/25 08:00 MDM - Altered Mental Status MDM Narrative Medical decision making narrative: Patient came to the ED with difficult to be aroused and lethargy Vital signs are unremarkable Physical examination showing a patient not in pain or distress, oriented to her name only Differential diagnosis include dehydration, electrolyte imbalance, urinary tract infection, depression related symptoms, CVA. Blood workup today includes CBC, CMP, troponin, blood culture, coags, TSH showed BN 31, creatinine 1.24, glucose 242 lactic acid 2.1 Urinalysis showed evidence of infection Chest x-ray showed no acute abnormalities EKG showed normal sinus rhythm at 61 beats per minute, occasional PVCs, no previous EKG available for comparison CT head without contrast showed no acute abnormality Diagnosis lethargy, confusion secondary to urinary tract infection Admit to hospitalist Differential Diagnosis Differential diagnosis: Likely other (As above) Medical Records Attestation: I reviewed the patient's medical records. Lab Data Attestation: I reviewed the patient's lab results. 08/14/25 06:14 08/14/25 06:14 Labs: Lab Results 08/12/25 08/12/25 08/12/25 Range/Units 11:54 12:17 12:18 WBC 6.6 (4.5-10.0) K/mm3 RBC 4.03 L (4.2-5.4) M/mm3 Hgb 12.1 (12.0-15.0) g/dL Hct 37.9 (37.0-47.0) % MCV 94.0 (80-100) fl MCH 30.0 (26-34) pg MCHC 31.9 L (32-36) g/dl RDW 13.4 (11.5-14.5) % Plt Count 226 (150-375) k/mm3 MPV 10.7 H (7.4-10.4) fl Immature Gran % (Auto) 0.5 (0-0.5) % Neut % (Auto) 66.6 (45.5-73.1) % Lymph % (Auto) 22.6 (18.3-44.2) % [place] % (Auto) 7.1 (2.6-8.5) % Eos % (Auto) 2.7 (0-4.4) % Baso % (Auto) 0.5 (0.2-1.2) % Lymph # (Auto) 1.50 (0.9-3.2) K/mm3 [place] # (Auto) 0.5 (0.1-0.6) K/mm3 Eos # (Auto) 0.2 (0-0.3) K/mm3 Baso # (Auto) 0.0 (0.0-0.1) K/mm3 Abs Immat Gran (auto) 0.03 (0.00-0.031) K/mm3 Absolute Neuts (auto) 4.4 (1.3-6.7) K/mm3 Absolute Nucleated RBC 0.000 (0.0-0.012) K/mm3 Nucleated RBC % 0.0 (0.0-0.2) % PT (11.1-14.7) Seconds INR APTT (22.3-36.8) Seconds Sodium 139 (137-145) mmol/L Potassium 3.9 (3.4-5.0) mmol/L Chloride 100 (98-107) mmol/L Carbon Dioxide 32 H (22-30) mmol/L Anion Gap 7 (4-12) mmol/L BUN 31 H D (7-17) mg/dL Creatinine 1.24 H (0.7-1.0) mg/dL Estim Creat Clear Calc 37 ml/min Estimated GFR 42 L (59 - ) Glucose 258 H (65-110) mg/dL POC Capillary Glucose 243 H (65-105) mg/dl Lactic Acid (0.7-2.0) mmol/L Calcium 9.2 (8.4-10.2) mg/dL Magnesium 1.9 Cancelled (1.6-2.3) mg/dL Total Bilirubin 0.7 (0.2-1.3) mg/dL AST 22 (14-36) U/L ALT 18 (6-35) U/L Alkaline Phosphatase 80 (38-126) U/L Troponin I < 0.012 (0.000-0.034) ng/mL C-Reactive Protein < 0.5 (<1.0) mg/dL Total Protein 7.2 (6.3-8.2) g/dL Albumin 3.8 (3.5-5.1) g/dL TSH 0.354 L Cancelled (0.465-4.680) uIU/mL Urine Color (Yellow) Urine Appearance (Clear) Urine pH (5.0-9.0) Ur Specific [place] (1.001-1.035) Urine Protein (Negative) mg/dL Urine Glucose (UA) (Negative) mg/dL Urine Ketones (Negative) mg/dL Ur Blood (Man) (Negative) Urine Nitrate (Negative) Urine Bilirubin (Negative) Urine Urobilinogen (<2.0) mg/dL Add Ur Microanalysis Leukocyte Esterase Rfl (Negative) ANU/UL Urine RBC (0-2) /hpf Urine WBC (0-3) /hpf Ur Squamous Epith Cells (Few) /hpf Urine Bacteria /hpf Urine Casts 08/12/25 08/12/25 Range/Units 12:46 12:47 WBC (4.5-10.0) K/mm3 RBC (4.2-5.4) M/mm3 Hgb (12.0-15.0) g/dL Hct (37.0-47.0) % MCV (80-100) fl MCH (26-34) pg MCHC (32-36) g/dl RDW (11.5-14.5) % Plt Count (150-375) k/mm3 MPV (7.4-10.4) fl Immature Gran % (Auto) (0-0.5) % Neut % (Auto) (45.5-73.1) % Lymph % (Auto) (18.3-44.2) % [place] % (Auto) (2.6-8.5) % Eos % (Auto) (0-4.4) % Baso % (Auto) (0.2-1.2) % Lymph # (Auto) (0.9-3.2) K/mm3 [place] # (Auto) (0.1-0.6) K/mm3 Eos # (Auto) (0-0.3) K/mm3 Baso # (Auto) (0.0-0.1) K/mm3 Abs Immat Gran (auto) (0.00-0.031) K/mm3 Absolute Neuts (auto) (1.3-6.7) K/mm3 Absolute Nucleated RBC (0.0-0.012) K/mm3 Nucleated RBC % (0.0-0.2) % PT 13.0 (11.1-14.7) Seconds INR 1.0 APTT 25.9 (22.3-36.8) Seconds Sodium (137-145) mmol/L Potassium (3.4-5.0) mmol/L Chloride (98-107) mmol/L Carbon Dioxide (22-30) mmol/L Anion Gap (4-12) mmol/L BUN (7-17) mg/dL Creatinine (0.7-1.0) mg/dL Estim Creat Clear Calc ml/min Estimated GFR (59 - ) Glucose (65-110) mg/dL POC Capillary Glucose (65-105) mg/dl Lactic Acid 2.1 H (0.7-2.0) mmol/L Calcium (8.4-10.2) mg/dL Magnesium (1.6-2.3) mg/dL Total Bilirubin (0.2-1.3) mg/dL AST (14-36) U/L ALT (6-35) U/L Alkaline Phosphatase (38-126) U/L Troponin I (0.000-0.034) ng/mL C-Reactive Protein (<1.0) mg/dL Total Protein (6.3-8.2) g/dL Albumin (3.5-5.1) g/dL TSH (0.465-4.680) uIU/mL Urine Color Yellow (Yellow) Urine Appearance Turbid H (Clear) Urine pH 7.5 (5.0-9.0) Ur Specific [place] 1.017 (1.001-1.035) Urine Protein 1+ H (Negative) mg/dL Urine Glucose (UA) Negative (Negative) mg/dL Urine Ketones Negative (Negative) mg/dL Ur Blood (Man) 1+ H (Negative) Urine Nitrate Positive H (Negative) Urine Bilirubin Negative (Negative) Urine Urobilinogen 1.0 (<2.0) mg/dL Add Ur Microanalysis Reviewed Leukocyte Esterase Rfl 3+ H (Negative) ANU/UL Urine RBC 0-2 (0-2) /hpf Urine WBC >100 H (0-3) /hpf Ur Squamous Epith Cells Few (Few) /hpf Urine Bacteria 4+ H /hpf Urine Casts 3-5 Imaging Data My impression: Impressions Chest X-Ray 08/12/25 13:16 IMPRESSION: 1. No acute cardiopulmonary findings given portable technique. Head CT 08/12/25 15:49 Impression: 1.No acute intracranial abnormality. Radiologist's impression: Impressions Chest X-Ray 08/12/25 13:16 IMPRESSION: 1. No acute cardiopulmonary findings given portable technique. ECG Data EKG #1: Attestation: I personally reviewed and interpreted this ECG as follows: ECG completion date: 08/12/25 Interpretation: Normal sinus rhythm at 61 beats per minute, occasional PVCs, left axis deviation, ventricular hypertrophy and nonspecific ST-T changes, no previous EKG available for comparison Critical Care Time Critical Care Time Critical Care Time: No Discharge Plan Discharge Clinical Impression: Urinary tract infection, CHRISTOPHER (acute kidney injury), Weakness Patient Disposition: Still a Patient Condition: Stable
--- NOTE | 2025-08-12 12:06 | ECG_ITS ---
Test Date: 2025-08-12 12:19:44 Measurements Intervals [place] Rate: 61 P: 0 [place]: 181 QRS: -39 QRSD: 87 T: 67 QT: 423 QTc: 429 Interpretive Statements SINUS RHYTHM WITH OCCASIONAL SUPRAVENTRICULAR PREMATURE COMPLEXES MARKED LEFT AXIS DEVIATION [QRS AXIS < -30] LOW QRS VOLTAGE IN PRECORDIAL LEADS [QRS DEFLECTION < 1.0 mV IN CHEST LEADS] LEFT VENTRICULAR HYPERTROPHY AND ST-T CHANGE [VOLTAGE CRITERIA PLUS ST/T ABNORMALITY] POSSIBLE ANTERIOR MYOCARDIAL INFARCTION , OF INDETERMINATE AGE [30 ms Q WAVE IN V3/V4, OR R < 0.2 mV IN V4] No previous ECG available for comparison Electronically Signed On 08-13-2025 14:11:47 CDT by Orlando Canales M.D.
[2025-08-12 12:23] LABS: Hematocrit 37.9 % (37.0-47.0); Hemoglobin 12.1 g/dL (12.0-15.0); Immature Granulocyte Percent A 0.5 % (0-0.5); Lymphocytes Absolute Auto 1.50 K/mm3 (0.9-3.2); Mean Corpuscular HGB Conc 31.9 g/dl (32-36); Mean Corpuscular Hemoglobin 30.0 pg (26-34); Mean Corpuscular Volume 94.0 fl (80-100); Nucleated Red Blood Cells Absolute Auto 0.000 K/mm3 (0.0-0.012); Nucleated Red Blood Cells Perc 0.0 % (0.0-0.2); Platelet Count Result 226 k/mm3 (150-375); Red Blood Count 4.03 M/mm3 (4.2-5.4); White Blood Count 6.6 K/mm3 (4.5-10.0)
[2025-08-12 12:41] LABS: Alanine Aminotransferase 18 U/L (6-35); Albumin Level 3.8 g/dL (3.5-5.1); Alkaline Phosphatase 80 U/L (38-126); Anion Gap 7 mmol/L (4-12); Aspartate Amino Transferase 22 U/L (14-36); Bilirubin,Total 0.7 mg/dL (0.2-1.3); Blood Urea Nitrogen 31 mg/dL (7-17); CRP < 0.5 mg/dL (<1.0); Calcium 9.2 mg/dL (8.4-10.2); Carbon Dioxide 32 mmol/L (22-30); Chloride 100 mmol/L (98-107); Estimated CRCL calculation 37 ml/min; Estimated Glomerular Filt Rate 42; Glucose 258 mg/dL (65-110); Magnesium 1.9 mg/dL (1.6-2.3); Potassium 3.9 mmol/L (3.4-5.0); Sodium 139 mmol/L (137-145); Total Protein 7.2 g/dL (6.3-8.2)
--- OUTSIDE RECORDS SUMMARY | 2025-08-12 12:42 | XMS_ITS | Patient Health Record ---
Author Organization [facility] [employer] Address [address] [place] [address] Care Team Providers Care Bag Repairer Name Role Phone Alden Danielle Unavailable [phone] Reason For Referral No Information Medications Medication SIG (Take, Route, Frequency, Duration) Notes Start Date End Date Status DULoxetine HCl 60 MG Capsule Delayed Release Particles Oral 05/26/2022 Active Lidocaine HCl (Local Anesth.) 1 % Kit Injection 05/26/2022 Active Ivermectin 3 MG Tablet Oral 05/26/2022 Active Pravastatin Sodium 40 MG Tablet Oral 05/26/2022 Active Nitrofurantoin Monohyd Macro 100 MG Capsule Oral 05/26/2022 Active Cephalexin 500 MG Capsule Oral 05/26/2022 Active Cyclobenzaprine HCl 5 MG Tablet Oral 05/26/2022 Active metFORMIN HCl 1000 MG Tablet Oral 05/26/2022 Active Metoprolol Tartrate 25 MG Tablet Oral 05/26/2022 Active traMADol HCl 50 MG Tablet Oral 05/26/2022 Active QUEtiapine Fumarate 50 MG Tablet Oral 05/26/2022 Active ERTAPENEM 1 gram VIAL (EA) INJECTION *Reorder from Pyreos for eRx and Interaction Alerts* 05/26/2022 Active FLUAD 2019-20 65YR UP(PF)45 MCG(15 MCGX3)/0.5 ML INTRAMUSCULAR SYRINGE *Reorder from Pyreos for eRx and Interaction Alerts* 05/26/2022 Active Lansoprazole 15 MG Capsule Delayed Release Oral 05/26/2022 Active LORazepam 0.5 MG Tablet Oral 05/26/2022 Active Levothyroxine Sodium 50 MCG Tablet Oral 05/26/2022 Active fentaNYL 12 MCG/HR Patch 72 Hour Transdermal 05/26/2022 Active Amoxicillin-Pot Clavulanate 875-125 MG Tablet Oral 05/26/2022 Active fentaNYL 25 MCG/HR Patch 72 Hour Transdermal 05/26/2022 Active Immunizations Vaccine Route Administration Date Status Comme nts Pneumococcal conjugate PCV 13 Unknown 08/30/2017 Admini stered Novel [id number], preservative free Unknown 08/29/2018 Administered Asad Covid-19 Vaccine Unknown 03/30/2021 Administere d Influenza, injectable, MDCK, preservative free Unknown 10/12/2013 Administered Influenza, high dose seasonal Unknown 08/30/2017 Admini stered Influenza virus vaccine, quadrivalent (IIV4), split virus, 0.25 mL dosage Unknown 09/15/2016 Administered Influenza virus vaccine, quadrivalent (IIV4), split virus, 0.25 mL dosage Unknown 09/27/2020 Administered Social History Social History Additional Details Category Social Info Options Details Migrated Social History Migrated Social History Alcohol Intake: None 03/20/2021,Tobacco Years: Never smoker 05/06/2020 Plan Of Treatment No Information Insurance Providers Payer Name Payer Address Payer Phone Subscriber Number Group Number Insured Name Patient Relationship to Insured Coverage Start Date Coverage End Date [employer] Replacemen t/Advantag e - [place] [address] [address] [place] [address] [id number] ANDREINA WILKERSON Self - patient is the insured
[2025-08-12 12:50] LABS: Troponin I < 0.012 ng/mL (0.000-0.034)
[2025-08-12 13:09] LABS: Thyroid Stimulating Hormone 0.354 uIU/mL (0.465-4.680)
[2025-08-12 13:15] LABS: Add Urine Microscopic? YES; Appearance Urine Turbid (Clear); Glucose Urine UA Negative (Negative); Leukocyte Esterase Ur 3+ LEU/UL (Negative); Need Manual Microscopic Reviewed; Nitrate Urine Positive (Negative); Specific Grav Ur 1.017 (1.001-1.035)
[2025-08-12 13:19] LABS: INR 1.0; Prothrombin Time 13.0 Seconds (11.1-14.7)
[2025-08-12 13:21] LABS: Partial Thromboplastin Time 25.9 Seconds (22.3-36.8)
[2025-08-12] MEDS: levoFLOXacin 500 MG/D5W 100 ML 500 MG/100 ML BAG 100 MG IVPB (15:51)
[2025-08-12] MEDS: SODIUM CHLORIDE 0.9% IV 1,000 ML 125 ML IV CONT (17:16)
--- NOTE | 2025-08-12 17:43 | PM.IMHP ---
H&P: HPI History of Present Illness Date/Time: 08/12/25 17:43 Chief Complaint: Altered mental status Narrative: 80-year-old female with a PMHx: of dementia, frequent UTI, currently resides in a long-term care facility, was brought into the emergency room via EMS with complaints may by staff the patient was difficult to be aroused. During interview patient is A&O x2 she tells me that she recently went to nondenominational when she returned home she became very weak, patient also tells me that she currently resides with her parents. Her history is not consistent with chart review. Patient is pleasant, follows commands, she denies any complaints at this time. She is a poor historian, unable to tell me what daily medication she takes at this time, or recall why she is being seen in the hospital. ED workup revealed: Patient arrives to the ED with difficulty to be aroused and lethargy, vital signs are unremarkable, patient exam showed no pain or distress she was only oriented to her name, differential diagnosis were dehydration electrolyte imbalance a blood workup revealed CBC CMP troponin blood culture coags TSH. chest x-ray showed no acute abnormalities, EKG was a normal sinus rhythm at 61 beats per minute occasional PVCs no previous EKG available for comparison CT head without contrast showed no acute abnormality. Patient admitted in the setting of urinary tract infection. Review of Systems Review of Systems: ROS unobtainable: Yes unobtainable due to mental status PMFSH Past Medical History Medical History Ataxia BMI 23.0-23.9, adult Urinary tract infection, recurrent Delusional disorder Encephalopathy History of stroke Family History Family History Mother Hypertension Family history of diabetes mellitus in first degree relative Family history of pancreatic cancer Family history of heart disease in male family member before age 55 Family history of rheumatoid arthritis Family history of neuropathy Father Family history of diabetes mellitus in first degree relative Family history of coronary artery disease Family history of heart disease in male family member before age 55 Sibling Family history of coronary artery disease Hypertension Family history of heart disease in male family member before age 55 Social History Social History Second hand tobacco smoke exposure: Yes Alcohol intake: never Substance use: never Living arrangements: with family Occupation/Education: retired Additional occupation/education comments: [employer] Gender identity (if verbalized by the patient): Female Meds Home Medications and Allergies Home Medications ?Medication ?Instructions ?Recorded ?Confirmed ?Type clonazepam 0.5 mg tablet 0.5 mg PO DAILY PRN anxiety #30 04/30/20 03/10/21 Rx tabs bupropion HCl 150 mg tablet,12 hr 150 mg PO BID #180 tabs 08/08/20 03/10/21 Rx sustained-release citalopram 40 mg tablet 40 mg PO DAILY #90 tabs 08/08/20 03/10/21 Rx levothyroxine 50 mcg tablet 50 mcg PO DAILY #90 tabs 01/27/21 03/10/21 Rx pravastatin 40 mg tablet 40 mg PO DAILY #90 tabs 03/21/21 Rx metformin 1,000 mg tablet 1,000 mg PO BID #180 tabs 04/23/21 Rx metoprolol tartrate 25 mg tablet 25 mg PO BID #60 tabs 04/23/21 Rx cyclobenzaprine 5 mg tablet 5 mg PO TID PRN muscle spasm #14 11/20/21 Rx tabs Allergies Allergy/AdvReac Type Severity Reaction Status Date / Time clindamycin Allergy Mild Unknown Verified 08/12/25 18:51 hydrocodone Allergy Mild nausea Verified 08/12/25 18:51 amoxicillin Allergy Unknown Unknown Verified 08/12/25 18:51 ampicillin Allergy Unknown Unknown Verified 08/12/25 18:51 erythromycin base Allergy Unknown Unknown Verified 08/12/25 18:51 Macrolide Antibiotics Allergy Unknown Unknown Verified 08/12/25 18:51 morphine Allergy Unknown nausea Verified 08/12/25 18:51 NSAIDS (Non-Steroidal Allergy Unknown Unknown Verified 08/12/25 18:51 Anti-Inflamma Penicillins Allergy Unknown Unknown Verified 08/12/25 18:51 adhesive tape AdvReac Mild BLISTERS Verified 08/12/25 18:51 Vital Signs Vital Signs - 24 hr 08/12/25 11:45 08/12/25 12:01 08/12/25 12:04 Temperature 97.7 F 97.7 F Pulse Rate 62 62 Respiratory Rate 14 12 Blood Pressure 134/47 L 122/79 Pulse Oximetry 100 100 100 Oxygen Delivery Room Air Room Air 08/12/25 15:55 Temperature Pulse Rate 66 Respiratory Rate 13 Blood Pressure 135/58 L Pulse Oximetry 100 Oxygen Delivery Exam Narrative: General appearance: Well-developed, well-nourished, does not look in pain or distress Skin: Normal color Head: Normocephalic, nontraumatic Eyes: Clear conjunctiva ENT: Oropharynx normal, ears normal, nose normal Neck: Supple, nontender Chest and respiratory: Airway patent, no respiratory distress, no accessory muscle use Heart: Regular rate/rhythm Abdomen: Soft, nontender, no organomegaly, quiet bowel sounds Vascular: Normal peripheral pulses, normal capillary refill. Musculoskeletal: moves all extremities Neurologic: Alert and oriented to her name only H&P: Results Labs Labs: Short CBC 08/12/25 Range/Units 12:17 WBC 6.6 (4.5-10.0) K/mm3 Hgb 12.1 (12.0-15.0) g/dL Hct 37.9 (37.0-47.0) % Plt Count 226 (150-375) k/mm3 BMP 08/12/25 12:17 Sodium 139 Potassium 3.9 Chloride 100 Carbon Dioxide 32 H BUN 31 H D Creatinine 1.24 H Glucose 258 H Calcium 9.2 Cardiac Enzymes 08/12/25 Range/Units 12:17 Troponin I < 0.012 (0.000-0.034) ng/mL Liver Function 08/12/25 Range/Units 12:17 Total Bilirubin 0.7 (0.2-1.3) mg/dL AST 22 (14-36) U/L ALT 18 (6-35) U/L Alkaline Phosphatase 80 (38-126) U/L Albumin 3.8 (3.5-5.1) g/dL Urine 08/12/25 Range/Units 12:47 Urine Color Yellow (Yellow) Urine Appearance Turbid H (Clear) Urine pH 7.5 (5.0-9.0) Ur Specific [place] 1.017 (1.001-1.035) Urine Protein 1+ H (Negative) mg/dL Urine Glucose (UA) Negative (Negative) mg/dL Pulse Oximetry Attestation: I personally reviewed and interpreted this pulse oximetry as follows: ECG Interpretation: Rate 61 IN 181 QRSd 87 QT 423 QTc 429 --Romayor-- P 0 QRS -39 T 67 SINUS RHYTHM WITH OCCASIONAL SUPRAVENTRICULAR PREMATURE COMPLEXES MARKED LEFT AXIS DEVIATION [QRS AXIS < -30] LOW QRS VOLTAGE IN PRECORDIAL LEADS [QRS DEFLECTION < 1.0 mV IN CHEST LEADS] LEFT VENTRICULAR HYPERTROPHY AND ST-T CHANGE [VOLTAGE CRITERIA PLUS ST/T ABNORMALITY] POSSIBLE ANTERIOR MYOCARDIAL INFARCTION , OF INDETERMINATE AGE [30 ms Q WAVE IN V3/V4, OR R < 0.2 mV IN V4] No previous ECG available for comparison Imaging Chest x-ray: Radiologist's impression: IMPRESSION: 1. No acute cardiopulmonary findings given portable technique. CT scan - head: Radiologist's impression: Findings: Right cerebellar lacunar infarcts. No bilateral basal ganglia lacunar infarcts. No acute infarct or hemorrhage. No midline shift or mass effect. No extra-axial fluid collections. Mastoid air cells unremarkable. Sinuses and orbits unremarkable. No acute fracture. No significant facial or scalp soft tissue swelling evident. No radiopaque foreign body is seen. Impression: 1.No acute intracranial abnormality. Assessment and Plan Assessment and plan (1) Weakness: Code(s): R53.1 - Weakness Status: Acute Assessment and Plan: -as reported by nursing staff - baseline uses wheelchair -labs reveal (2) Urinary tract infection, recurrent: Code(s): N39.0 - Urinary tract infection, site not specified Status: Acute Assessment and Plan: -leuks 3+, urine WBC>100, urine bacteria +4 -pt was given levofloxacin in the ED, has many allergies -follow up in the am for ongoing abx tx for uti -consult infectious diease pharm for renal dosing/ abx (3) Essential (primary) hypertension: Code(s): I10 - Essential (primary) hypertension Status: Acute Assessment and Plan: -continue home meditcation (4) Type 2 diabetes mellitus without complication: Code(s): E11.9 - Type 2 diabetes mellitus without complications Status: Acute Assessment and Plan: -hold metformin -monitor glucose with meals Bedside glucose management ACHS (5) Major depressive disorder, single episode, unspecified: Code(s): F32.9 - Major depressive disorder, single episode, unspecified Status: Acute Assessment and Plan: -continue home medication (6) Delusional disorder: Code(s): F22 - Delusional disorders Status: Acute Plan Continue home medications: VTE Prophylaxis: SCDs DIET: Regular Anticipated hospital stay: >2 days Code Status: Full code Hospitalist MIPS Advance Care Plan I have confirmed that the patient's Advanced Care Plan is present, code status is documented, or surrogate decision maker is listed in patient medical record.: Yes Medication Reconciliation I have utilized all available resources to obtain, update and review the patients current medications (includes all prescriptions, OTC, herbals, cannabis, and nutritional supplements).: Yes
--- NOTE | 2025-08-12 18:30 | ADMGEN ---
This patient, Catalina Ca, was admitted to [facility] Surg Room 325-01. Patient/family oriented to hospital policies and general routines including ID bracelet, bed and alarms, visiting hours, pain management, procedures, bathroom and other care routines, personal items, smoking policy, room service/diet, and visiting hours. Information on how to activate the Rapid Response Team has been discussed. Patient/Family are encouraged to report perceived risks to care and to ask questions if they do not understand what they are told or what they should do. Received report from Ena- ELECT[employer]ICAL RESEARCH ENGINEER.
[2025-08-13] VITALS (8 sets, daily range): BP systolic 125–174; BP diastolic 52–60; PULSE 62–95; RESP 12–18; TEMP 35.9–36.9; O2SAT 95–100; BMI 30.3
[2025-08-13] MEDS: SODIUM CHLORIDE 0.9% IV 1,000 ML 125 ML IV CONT (02:27)
[2025-08-13 06:37] LABS: Hematocrit 36.6 % (37.0-47.0); Hemoglobin 11.7 g/dL (12.0-15.0); Immature Granulocyte Percent A 0.5 % (0-0.5); Lymphocytes Absolute Auto 1.05 K/mm3 (0.9-3.2); Mean Corpuscular HGB Conc 32.0 g/dl (32-36); Mean Corpuscular Hemoglobin 30.2 pg (26-34); Mean Corpuscular Volume 94.3 fl (80-100); Nucleated Red Blood Cells Absolute Auto 0.000 K/mm3 (0.0-0.012); Nucleated Red Blood Cells Perc 0.0 % (0.0-0.2); Platelet Count Result 217 k/mm3 (150-375); Red Blood Count 3.88 M/mm3 (4.2-5.4); White Blood Count 8.8 K/mm3 (4.5-10.0)
[2025-08-13 07:34] LABS: Alanine Aminotransferase 15 U/L (6-35); Albumin Level 3.6 g/dL (3.5-5.1); Alkaline Phosphatase 87 U/L (38-126); Anion Gap 6 mmol/L (4-12); Aspartate Amino Transferase 21 U/L (14-36); Bilirubin,Total 0.4 mg/dL (0.2-1.3); Blood Urea Nitrogen 24 mg/dL (7-17); Calcium 8.8 mg/dL (8.4-10.2); Carbon Dioxide 27 mmol/L (22-30); Chloride 106 mmol/L (98-107); Estimated CRCL calculation 41 ml/min; Estimated Glomerular Filt Rate 50; Glucose 206 mg/dL (65-110); Potassium 4.3 mmol/L (3.4-5.0); Sodium 139 mmol/L (137-145); Total Protein 6.9 g/dL (6.3-8.2)
--- NOTE | 2025-08-13 07:55 | P.PNIM_ITS ---
Progress Note: A&P Assessment and Plan (1) Encephalopathy: Code(s): G93.40 - Encephalopathy, unspecified Status: Acute Assessment and Plan: - patient presented lethargic, AxO x1. - CT head with no acute process - likely secondary to UTI vs. viral illness - improved orientation, alert and oriented x3 this AM. Unclear baseline, but does have documented dementia and a legal guardian. - checking RSV/COVID/Flu due to sore throat, cough (2) Urinary tract infection, recurrent: Code(s): N39.0 - Urinary tract infection, site not specified Status: Acute Assessment and Plan: -leuks 3+, urine WBC>100, urine bacteria +4 - has remote history of ESBL and many allergies - presented with AMS, - was given Levaquin in ED - trial Rocephin - follow-up blood and urine cultures (3) Essential (primary) hypertension: Code(s): I10 - Essential (primary) hypertension Status: Acute Assessment and Plan: -continue home medication (4) Weakness: Code(s): R53.1 - Weakness Status: Acute Assessment and Plan: - as reported by nursing staff - baseline ambulates some and utilizes wheelchair - resides in LTC facility - PT/OT (5) Type 2 diabetes mellitus without complication: Code(s): E11.9 - Type 2 diabetes mellitus without complications Status: Acute Assessment and Plan: - hold metformin - accuchecks ACHS - low dose SSI - hypoglycemia management protocol (6) Major depressive disorder, single episode, unspecified: Code(s): F32.9 - Major depressive disorder, single episode, unspecified Status: Acute Assessment and Plan: -continue home medication Plan Code Status: Full code DVT prophylaxis: Lovenox Disposition: likely back to [facility] Subjective Date/time seen: 08/13/25 07:55 Interval history: 80-year-old female with a PMHx: of dementia, frequent UTI, currently resides in a long-term care facility, was brought into the emergency room via EMS with complaints may by staff the patient was difficult to be aroused. Patient seen and examined at bedside. Alert and oriented to self, knows she's in the hospital, month and year. Denies UTI symptoms. Complaining of shortness of breath and cough. Review of Systems Review of Systems: All systems reviewed & are unremarkable except as noted in HPI and below Exam Narrative: General: mildly ill-appearing Eyes: EOMI ENT: neck supple Cardiovascular: Regular rate and rhythm Respiratory: Clear to auscultation, respirations even and unlabored on RA Gastrointestinal: Soft, non tender Genitourinary: no suprapubic tenderness Musculoskeletal: No edema Skin: warm, dry Neuro: Alert and oriented x3. Psych: Mood appropriate Objective Data Vital Signs Vital Signs: Vital Signs - 24 hr 08/12/25 11:45 08/12/25 12:01 08/12/25 12:04 Temperature 97.7 F 97.7 F Pulse Rate 62 62 Respiratory Rate 14 12 Blood Pressure 134/47 L 122/79 Pulse Oximetry 100 100 100 Oxygen Delivery Room Air Room Air Fraction of Inspired Oxygen 08/12/25 15:55 08/12/25 17:44 08/12/25 20:00 Temperature 98.3 F Pulse Rate 66 66 71 Respiratory Rate 13 14 14 Blood Pressure 135/58 L 130/89 158/61 H Pulse Oximetry 100 98 99 Oxygen Delivery Fraction of Inspired Oxygen 08/12/25 20:00 08/12/25 22:00 08/12/25 23:37 Temperature 98.3 F Pulse Rate 71 Respiratory Rate 14 Blood Pressure 158/61 H Pulse Oximetry 99 94 Oxygen Delivery Room Air Room Air Fraction of Inspired Oxygen 08/13/25 00:00 08/13/25 04:00 08/13/25 06:00 Temperature 98.5 F 97.5 F L 97.5 F L Pulse Rate 95 69 69 Respiratory Rate 14 12 12 Blood Pressure 140/53 L 151/54 H 151/54 H Pulse Oximetry 95 99 99 Oxygen Delivery Fraction of Inspired Oxygen Intake/Output Intake/Output: Intake & Output 08/10/25 08/11/25 08/12/25 08/13/25 23:59 23:59 23:59 23:59 Intake Total 100 1000 Output Total 350 150 Balance -250 850 Meds/Results Medications: Active Medications Generic Name Dose Route Start Last Admin Trade Name Freq PRN Reason Stop Dose Admin Acetaminophen 650 mg 08/12/25 16:30 Acetaminophen 325 Mg Tablet PO Q4H PRN Mild Pain (1-3) or Fever Sodium Chloride 1,000 mls @ 125 mls/hr 08/12/25 16:30 08/13/25 02:27 Normal Saline Iv IV CONT 125 mls/hr .Q8H RICHIE Administration Radiology Results: ITS Impressions Chest X-Ray 08/12/25 13:16 IMPRESSION: 1. No acute cardiopulmonary findings given portable technique. Head CT 08/12/25 15:49 Impression: 1.No acute intracranial abnormality. Labs Labs: Laboratory Results - last 24 hr 08/12/25 08/12/25 08/12/25 11:54 12:17 12:18 WBC 6.6 RBC 4.03 L Hgb 12.1 Hct 37.9 MCV 94.0 MCH 30.0 MCHC 31.9 L RDW 13.4 Plt Count 226 MPV 10.7 H Immature Gran % (Auto) 0.5 Neut % (Auto) 66.6 Lymph % (Auto) 22.6 [place] % (Auto) 7.1 Eos % (Auto) 2.7 Baso % (Auto) 0.5 Lymph # (Auto) 1.50 [place] # (Auto) 0.5 Eos # (Auto) 0.2 Baso # (Auto) 0.0 Abs Immat Gran (auto) 0.03 Absolute Neuts (auto) 4.4 Absolute Nucleated RBC 0.000 Nucleated RBC % 0.0 PT INR APTT Sodium 139 Potassium 3.9 Chloride 100 Carbon Dioxide 32 H Anion Gap 7 BUN 31 H D Creatinine 1.24 H Estim Creat Clear Calc 37 Estimated GFR 42 L Glucose 258 H POC Capillary Glucose 243 H Lactic Acid Calcium 9.2 Magnesium 1.9 Cancelled Total Bilirubin 0.7 AST 22 ALT 18 Alkaline Phosphatase 80 Troponin I < 0.012 C-Reactive Protein < 0.5 Total Protein 7.2 Albumin 3.8 TSH 0.354 L Cancelled Urine Color Urine Appearance Urine pH Ur Specific [place] Urine Protein Urine Glucose (UA) Urine Ketones Ur Blood (Man) Urine Nitrate Urine Bilirubin Urine Urobilinogen Add Ur Microanalysis Leukocyte Esterase Rfl Urine RBC Urine WBC Ur Squamous Epith Cells Urine Bacteria Urine Casts 08/12/25 08/12/25 08/12/25 12:46 12:47 20:10 WBC RBC Hgb Hct MCV MCH MCHC RDW Plt Count MPV Immature Gran % (Auto) Neut % (Auto) Lymph % (Auto) [place] % (Auto) Eos % (Auto) Baso % (Auto) Lymph # (Auto) [place] # (Auto) Eos # (Auto) Baso # (Auto) Abs Immat Gran (auto) Absolute Neuts (auto) Absolute Nucleated RBC Nucleated RBC % PT 13.0 INR 1.0 APTT 25.9 Sodium Potassium Chloride Carbon Dioxide Anion Gap BUN Creatinine Estim Creat Clear Calc Estimated GFR Glucose POC Capillary Glucose Lactic Acid 2.1 H 2.0 Calcium Magnesium Total Bilirubin AST ALT Alkaline Phosphatase Troponin I C-Reactive Protein Total Protein Albumin TSH Urine Color Yellow Urine Appearance Turbid H Urine pH 7.5 Ur Specific [place] 1.017 Urine Protein 1+ H Urine Glucose (UA) Negative Urine Ketones Negative Ur Blood (Man) 1+ H Urine Nitrate Positive H Urine Bilirubin Negative Urine Urobilinogen 1.0 Add Ur Microanalysis Reviewed Leukocyte Esterase Rfl 3+ H Urine RBC 0-2 Urine WBC >100 H Ur Squamous Epith Cells Few Urine Bacteria 4+ H Urine Casts 3-5 08/12/25 08/13/25 21:34 06:23 WBC 8.8 RBC 3.88 L Hgb 11.7 L Hct 36.6 L MCV 94.3 MCH 30.2 MCHC 32.0 RDW 13.2 Plt Count 217 MPV 10.6 H Immature Gran % (Auto) 0.5 Neut % (Auto) 80.8 H Lymph % (Auto) 12.0 L [place] % (Auto) 4.7 Eos % (Auto) 1.7 Baso % (Auto) 0.3 Lymph # (Auto) 1.05 [place] # (Auto) 0.4 Eos # (Auto) 0.2 Baso # (Auto) 0.0 Abs Immat Gran (auto) 0.04 H Absolute Neuts (auto) 7.1 H Absolute Nucleated RBC 0.000 Nucleated RBC % 0.0 PT INR APTT Sodium 139 Potassium 4.3 Chloride 106 Carbon Dioxide 27 Anion Gap 6 BUN 24 H Creatinine 1.07 H Estim Creat Clear Calc 41 Estimated GFR 50 L Glucose 206 H POC Capillary Glucose 179 H Lactic Acid Calcium 8.8 Magnesium Total Bilirubin 0.4 AST 21 ALT 15 Alkaline Phosphatase 87 Troponin I C-Reactive Protein Total Protein 6.9 Albumin 3.6 TSH Urine Color Urine Appearance Urine pH Ur Specific [place] Urine Protein Urine Glucose (UA) Urine Ketones Ur Blood (Man) Urine Nitrate Urine Bilirubin Urine Urobilinogen Add Ur Microanalysis Leukocyte Esterase Rfl Urine RBC Urine WBC Ur Squamous Epith Cells Urine Bacteria Urine Casts
[2025-08-13] MEDS: GABAPENTIN 100 MG CAPSULE 200 MG PO ×3 (08:21→17:21)
[2025-08-13] MEDS: DULoxetine HCL 60 MG CAPSULE.DR PO (08:21)
[2025-08-13] MEDS: PRAVASTATIN SODIUM 20 MG TABLET 40 MG PO (08:21)
[2025-08-13] MEDS: PANTOPRAZOLE 40 MG TABLET PO (08:22)
[2025-08-13] MEDS: METOPROLOL TARTRATE 25 MG TABLET PO ×2 (08:22→17:21)
[2025-08-13] MEDS: traMADol HCL (*CRX) 50 MG TABLET PO ×2 (08:23→17:21)
[2025-08-13] MEDS: INSULIN ASPART (*BKC) 100 UNITS/ML SUB-Q ×2 (08:23→11:55)
[2025-08-13 10:52] LABS: Free T4 Free Thyroxine 1.49 ng/dL (0.78-2.19)
[2025-08-13] MEDS: cefTRIAXone 1 GM in SODIUM CHLORIDE 0.9% IV 50 ML 100 ML IVPB (11:55)
[2025-08-13 12:55] LABS: Influenza A QL RT-PCR Negative (Negative); Influenza B QL RT-PCR Negative (Negative); RSV RNA, RT-PCR Negative (Negative); SARS-CoV-2 RNA PCR Negative (Negative)
[2025-08-13] MEDS: MIRTAZAPINE 7.5 MG TABLET PO (20:45)
[2025-08-13] MEDS: INSULIN GLARGINE (*BKC) 100 UNITS/ML 12 UNITS SUB-Q (20:45)
[2025-08-14 05:25] VITALS: BP 143/54; PULSE 80; RESP 16; TEMP 36.4; O2SAT 94
[2025-08-14] MEDS: LEVOTHYROXINE SODIUM 75 MCG TABLET PO (05:48)
[2025-08-14 06:52] LABS: Hematocrit 35.2 % (37.0-47.0); Hemoglobin 11.5 g/dL (12.0-15.0); Immature Granulocyte Percent A 0.5 % (0-0.5); Lymphocytes Absolute Auto 1.04 K/mm3 (0.9-3.2); Mean Corpuscular HGB Conc 32.7 g/dl (32-36); Mean Corpuscular Hemoglobin 30.3 pg (26-34); Mean Corpuscular Volume 92.9 fl (80-100); Nucleated Red Blood Cells Absolute Auto 0.000 K/mm3 (0.0-0.012); Nucleated Red Blood Cells Perc 0.0 % (0.0-0.2); Platelet Count Result 209 k/mm3 (150-375); Red Blood Count 3.79 M/mm3 (4.2-5.4); White Blood Count 8.3 K/mm3 (4.5-10.0)
[2025-08-14 07:14] LABS: Alanine Aminotransferase 13 U/L (6-35); Albumin Level 3.5 g/dL (3.5-5.1); Alkaline Phosphatase 79 U/L (38-126); Anion Gap 7 mmol/L (4-12); Aspartate Amino Transferase 18 U/L (14-36); Bilirubin,Total 0.6 mg/dL (0.2-1.3); Blood Urea Nitrogen 23 mg/dL (7-17); Calcium 9.0 mg/dL (8.4-10.2); Carbon Dioxide 26 mmol/L (22-30); Chloride 101 mmol/L (98-107); Estimated CRCL calculation 44 ml/min; Estimated Glomerular Filt Rate 54; Glucose 224 mg/dL (65-110); Potassium 4.0 mmol/L (3.4-5.0); Sodium 134 mmol/L (137-145); Total Protein 6.9 g/dL (6.3-8.2)
[2025-08-14] MEDS: INSULIN ASPART (*BKC) 100 UNITS/ML SUB-Q ×2 (07:57→17:08)
[2025-08-14 08:00] VITALS: PULSE 80; RESP 16; O2SAT 94
[2025-08-14] MEDS: DULoxetine HCL 60 MG CAPSULE.DR PO (08:22)
[2025-08-14] MEDS: cefTRIAXone 1 GM in SODIUM CHLORIDE 0.9% IV 50 ML 100 ML IVPB (08:22)
[2025-08-14] MEDS: METOPROLOL TARTRATE 25 MG TABLET PO ×2 (08:23→16:27)
[2025-08-14] MEDS: GABAPENTIN 100 MG CAPSULE 200 MG PO ×3 (08:23→16:27)
[2025-08-14] MEDS: ENOXAPARIN 40 MG/0.4 ML SYRINGE SUB-Q (08:23)
[2025-08-14] MEDS: PANTOPRAZOLE 40 MG TABLET PO (08:23)
[2025-08-14] MEDS: traMADol HCL (*CRX) 50 MG TABLET PO ×2 (08:24→16:27)
[2025-08-14] MEDS: PRAVASTATIN SODIUM 20 MG TABLET 40 MG PO (08:24)
--- NOTE | 2025-08-14 10:03 | PCPTNOTE ---
Pt dependent at baseline requiring dev lift to wheelchair and is assisted with all ADLs. Message left with current hospitalist. Therapy orders removed at this time.
--- NOTE | 2025-08-14 13:43 | P.PNIM_ITS ---
Progress Note: A&P Assessment and Plan (1) Encephalopathy: Code(s): G93.40 - Encephalopathy, unspecified Status: Acute Assessment and Plan: - patient presented lethargic, AxO x1. - CT head with no acute process - likely secondary to UTI vs. viral illness given cough, congestion, sore throat. COVID/Flu/RSV negative - improved orientation, alert and oriented x3 this AM. (2) Urinary tract infection, recurrent: Code(s): N39.0 - Urinary tract infection, site not specified Status: Acute Assessment and Plan: - leuks 3+, urine WBC>100, urine bacteria +4 - has remote history of ESBL and many allergies - presented with AMS as above. - was given Levaquin in ED - continue Rocephin - follow-up blood and urine cultures (3) Essential (primary) hypertension: Code(s): I10 - Essential (primary) hypertension Status: Acute Assessment and Plan: -continue home medication (4) Type 2 diabetes mellitus without complication: Code(s): E11.9 - Type 2 diabetes mellitus without complications Status: Acute Assessment and Plan: - hold metformin - accuchecks ACHS - low dose SSI - hypoglycemia management protocol (5) Major depressive disorder, single episode, unspecified: Code(s): F32.9 - Major depressive disorder, single episode, unspecified Status: Acute Assessment and Plan: -continue home medication Plan Code Status: Full code DVT prophylaxis: Lovenox Disposition: patient is a group home pt at [facility], plans to return Subjective Date/time seen: 08/14/25 13:43 Interval history: 80-year-old female with a PMHx: of dementia, frequent UTI, currently resides in a long-term care facility, was brought into the emergency room via EMS with complaints may by staff the patient was difficult to be aroused. Patient seen and examined at bedside. Alert and oriented to self, knows she's in the hospital, month and year. Still has a sore throat. Review of Systems Review of Systems: All systems reviewed & are unremarkable except as noted in HPI and below Exam Narrative: General: NAD Eyes: EOMI ENT: neck supple Cardiovascular: Regular rate and rhythm Respiratory: Clear to auscultation, respirations even and unlabored on RA Gastrointestinal: Soft, non tender Genitourinary: no suprapubic tenderness Musculoskeletal: No edema Skin: warm, dry Neuro: Alert and oriented x3. Psych: Mood appropriate Objective Data Vital Signs Vital Signs: Vital Signs - 24 hr 08/13/25 14:00 08/13/25 17:21 08/13/25 20:00 Temperature 96.6 F L Pulse Rate 91 62 62 Respiratory Rate 18 18 Blood Pressure 174/60 H Pulse Oximetry 99 99 Oxygen Delivery Room Air Fraction of Inspired Oxygen 08/13/25 22:00 08/14/25 05:25 08/14/25 08:00 Temperature 97.3 F L 97.5 F L Pulse Rate 65 80 80 Respiratory Rate 16 16 16 Blood Pressure 125/52 L 143/54 H Pulse Oximetry 100 94 94 Oxygen Delivery Room Air Fraction of Inspired Oxygen 21 Intake/Output Intake/Output: Intake & Output 08/11/25 08/12/25 08/13/25 08/14/25 23:59 23:59 23:59 23:59 Intake Total 100 1770 358 Output Total 350 1350 650 Balance -250 420 -292 Meds/Results Medications: Active Medications Generic Name Dose Route Start Last Admin Trade Name Freq PRN Reason Stop Dose Admin Acetaminophen 650 mg 08/12/25 16:30 Acetaminophen 325 Mg Tablet PO Q4H PRN Mild Pain (1-3) or Fever Dextrose 12.5 gm 08/13/25 08:02 Dextrose 50% 25 Gm/50 Ml Syringe IV PUSH PRN PRN Hypoglycemia Protocol Duloxetine HCl 30 mg 08/13/25 09:00 08/14/25 08:22 Duloxetine Hcl 30 Mg Capsule. PO 30 mg DAILY RICHIE Administration Duloxetine HCl 60 mg 08/13/25 09:00 08/14/25 08:22 Duloxetine Hcl 60 Mg Capsule. PO 60 mg DAILY RICHIE Administration Enoxaparin Sodium 40 mg 08/14/25 09:00 08/14/25 08:23 Enoxaparin 40 Mg/0.4 Ml Syringe SUB-Q 40 mg DAILY RICHIE Administration Gabapentin 200 mg 08/13/25 09:00 08/14/25 12:10 Gabapentin 100 Mg Capsule PO 200 mg TID RICHIE Administration Glucagon 1 mg 08/13/25 08:02 Glucagon For Inj 1 Mg Vial IM PRN PRN Hypoglycemia Protocol Glucose 15 gm 08/13/25 08:02 Glucose Oral Gel 15 Gm Of Glucse In 37.5 Gm Tube PO PRN PRN Hypoglycemia Protocol Dextrose 1,000 mls @ 100 mls/hr 08/13/25 08:02 Dextrose 5% 1,000 Ml IVPB PRN PRN Hypoglycemia Protocol Ceftriaxone Sodium 1 gm/ 50 mls @ 100 mls/hr 08/13/25 11:20 08/14/25 08:22 Sodium Chloride IVPB 100 mls/hr QAM RICHIE Administration Insulin Aspart 2 - 5 units 08/13/25 08:00 08/14/25 11:57 Insulin Aspart (*Bkc) 100 Units/Ml SUB-Q Not Given TIDWM [facility] Protocol Insulin Glargine 18 units 08/14/25 21:00 Insulin Glargine (*Bkc) 100 Units/Ml SUB-Q HS [facility]1983 Levothyroxine Sodium 75 mcg 08/14/25 06:30 08/14/25 05:48 Levothyroxine Sodium 75 Mcg Tablet PO 75 mcg DAILY@0630 RICHIE Administration Metoprolol Tartrate 25 mg 08/13/25 09:00 08/14/25 08:23 Metoprolol Tartrate 25 Mg Tablet PO 25 mg BID RICHIE Administration Mirtazapine 7.5 mg 08/13/25 21:00 08/13/25 20:45 Mirtazapine 7.5 Mg Tablet PO 7.5 mg HS RICHIE Administration Pantoprazole Sodium 40 mg 08/13/25 09:00 08/14/25 08:23 Pantoprazole 40 Mg Tablet PO 40 mg QAM RICHIE Administration Pravastatin Sodium 40 mg 08/13/25 09:00 08/14/25 08:24 Pravastatin Sodium 20 Mg Tablet PO 40 mg DAILY RICHIE Administration Tramadol HCl 50 mg 08/13/25 09:00 08/14/25 08:24 Tramadol Hcl (*Crx) 50 Mg Tablet PO 50 mg BID RICHIE Administration Radiology Results: ITS Impressions Chest X-Ray 08/12/25 13:16 IMPRESSION: 1. No acute cardiopulmonary findings given portable technique. Head CT 08/12/25 15:49 Impression: 1.No acute intracranial abnormality. Labs Labs: Laboratory Results - last 24 hr 08/13/25 08/13/25 08/14/25 16:33 20:10 06:14 WBC 8.3 RBC 3.79 L Hgb 11.5 L Hct 35.2 L MCV 92.9 MCH 30.3 MCHC 32.7 RDW 13.3 Plt Count 209 MPV 10.3 Immature Gran % (Auto) 0.5 Neut % (Auto) 77.3 H Lymph % (Auto) 12.5 L [place] % (Auto) 6.4 Eos % (Auto) 2.9 Baso % (Auto) 0.4 Lymph # (Auto) 1.04 [place] # (Auto) 0.5 Eos # (Auto) 0.2 Baso # (Auto) 0.0 Abs Immat Gran (auto) 0.04 H Absolute Neuts (auto) 6.4 Absolute Nucleated RBC 0.000 Nucleated RBC % 0.0 Sodium 134 L Potassium 4.0 Chloride 101 Carbon Dioxide 26 Anion Gap 7 BUN 23 H Creatinine 1.00 Estim Creat Clear Calc 44 Estimated GFR 54 L Glucose 224 H POC Capillary Glucose 169 H 230 H Calcium 9.0 Total Bilirubin 0.6 AST 18 ALT 13 Alkaline Phosphatase 79 Total Protein 6.9 Albumin 3.5 08/14/25 08/14/25 08/14/25 06:41 07:22 11:37 WBC RBC Hgb Hct MCV MCH MCHC RDW Plt Count MPV Immature Gran % (Auto) Neut % (Auto) Lymph % (Auto) [place] % (Auto) Eos % (Auto) Baso % (Auto) Lymph # (Auto) [place] # (Auto) Eos # (Auto) Baso # (Auto) Abs Immat Gran (auto) Absolute Neuts (auto) Absolute Nucleated RBC Nucleated RBC % Sodium Potassium Chloride Carbon Dioxide Anion Gap BUN Creatinine Estim Creat Clear Calc Estimated GFR Glucose POC Capillary Glucose 201 H 209 H 190 H Calcium Total Bilirubin AST ALT Alkaline Phosphatase Total Protein Albumin Quality VTE Prophylaxis VTE prophylaxis: pharmacologic ordered
[2025-08-14 14:00] VITALS: BP 137/58; PULSE 74; RESP 20; TEMP 36.4; O2SAT 97
[2025-08-14 14:08] LABS: Triiodothyronine (T3), Free 2.2 pg/mL (2.0-4.4)
[2025-08-14 19:43] VITALS: PULSE 74; RESP 20; O2SAT 97
[2025-08-14 21:05] VITALS: BP 130/74; PULSE 80; RESP 18; TEMP 37.4; O2SAT 95
[2025-08-14] MEDS: MIRTAZAPINE 7.5 MG TABLET PO (21:11)
[2025-08-14] MEDS: INSULIN GLARGINE (*BKC) 100 UNITS/ML 18 UNITS SUB-Q (21:12)
[2025-08-15 04:34] VITALS: BP 155/60; PULSE 61; RESP 18; TEMP 36.3; O2SAT 98
[2025-08-15] MEDS: LEVOTHYROXINE SODIUM 75 MCG TABLET PO (05:36)
[2025-08-15 06:51] LABS: Hematocrit 34.4 % (37.0-47.0); Hemoglobin 11.1 g/dL (12.0-15.0); Immature Granulocyte Percent A 0.9 % (0-0.5); Lymphocytes Absolute Auto 1.10 K/mm3 (0.9-3.2); Mean Corpuscular HGB Conc 32.3 g/dl (32-36); Mean Corpuscular Hemoglobin 30.2 pg (26-34); Mean Corpuscular Volume 93.5 fl (80-100); Nucleated Red Blood Cells Absolute Auto 0.000 K/mm3 (0.0-0.012); Nucleated Red Blood Cells Perc 0.0 % (0.0-0.2); Platelet Count Result 207 k/mm3 (150-375); Red Blood Count 3.68 M/mm3 (4.2-5.4); White Blood Count 5.4 K/mm3 (4.5-10.0)
[2025-08-15 07:21] LABS: Alanine Aminotransferase 13 U/L (6-35); Albumin Level 3.5 g/dL (3.5-5.1); Alkaline Phosphatase 76 U/L (38-126); Anion Gap 8 mmol/L (4-12); Aspartate Amino Transferase 22 U/L (14-36); Bilirubin,Total 0.5 mg/dL (0.2-1.3); Blood Urea Nitrogen 27 mg/dL (7-17); Calcium 9.0 mg/dL (8.4-10.2); Carbon Dioxide 27 mmol/L (22-30); Chloride 98 mmol/L (98-107); Estimated CRCL calculation 42 ml/min; Estimated Glomerular Filt Rate 52; Glucose 217 mg/dL (65-110); Potassium 4.2 mmol/L (3.4-5.0); Sodium 133 mmol/L (137-145); Total Protein 6.8 g/dL (6.3-8.2)
--- NOTE | 2025-08-15 08:24 | P.PNIM_ITS ---
Progress Note: A&P Assessment and Plan (1) Encephalopathy: Code(s): G93.40 - Encephalopathy, unspecified Status: Acute Assessment and Plan: * patient presented lethargic, AxO x1. * CT head with no acute process * likely secondary to UTI vs. viral illness given cough, congestion, sore throat. COVID/Flu/RSV negative * A&O x3 this morning, however very tired on exam (2) Urinary tract infection, recurrent: Code(s): N39.0 - Urinary tract infection, site not specified Status: Acute Assessment and Plan: * leuks 3+, urine WBC>100, urine bacteria +4 * has remote history of ESBL and many allergies * presented with AMS as above. * was given Levaquin in ED * continue Rocephin * Blood cultures NGTD * Urine culture shows growth of Gram-negative bacilli (3) Essential (primary) hypertension: Code(s): I10 - Essential (primary) hypertension Status: Acute Assessment and Plan: * continue home medication (4) Type 2 diabetes mellitus without complication: Code(s): E11.9 - Type 2 diabetes mellitus without complications Status: Acute Assessment and Plan: * hold metformin * accuchecks ACHS * low dose SSI * hypoglycemia management protocol * Glucose levels well maintained (5) Major depressive disorder, single episode, unspecified: Code(s): F32.9 - Major depressive disorder, single episode, unspecified Status: Acute Assessment and Plan: * continue home medication Plan Code Status: Full code DVT prophylaxis: Lovenox Disposition: patient is a halfway pt at [facility], plans to return Subjective Date/time seen: 08/15/25 08:24 Interval history: 80-year-old female with a PMHx: of dementia, frequent UTI, currently resides in a long-term care facility, was brought into the emergency room via EMS with complaints may by staff the patient was difficult to be aroused. 08/15/2025 Patient sleeping comfortably in bed at time of examination. Denies any complaints or concerns at this time. No overnight events. Blood work largely unchanged. Blood cultures NGTD. Urine culture shows growth of Gram-negative bacilli, no specificity/sensitivities yet. Discharge pending final urine culture results -likely tomorrow. Review of Systems 2 Review of Systems: All systems reviewed & are unremarkable except as noted in HPI and below Exam Narrative: General: NAD Eyes: EOMI ENT: neck supple Cardiovascular: Regular rate and rhythm Respiratory: Clear to auscultation, respirations even and unlabored on RA Gastrointestinal: Soft, non tender Genitourinary: no suprapubic tenderness Musculoskeletal: No edema Skin: warm, dry Neuro: Alert and oriented x3. Psych: Mood appropriate Objective Data Vital Signs Vital Signs: Vital Signs - 24 hr 08/14/25 14:00 08/14/25 19:43 08/14/25 21:05 Temperature 97.6 F 99.4 F Pulse Rate 74 74 80 Respiratory Rate 20 20 18 Blood Pressure 137/58 L 130/74 Pulse Oximetry 97 97 95 Oxygen Delivery Room Air Fraction of Inspired Oxygen 08/15/25 04:34 Temperature 97.4 F L Pulse Rate 61 Respiratory Rate 18 Blood Pressure 155/60 H Pulse Oximetry 98 Oxygen Delivery Fraction of Inspired Oxygen Intake/Output Intake/Output: Intake & Output 08/12/25 08/13/25 08/14/25 08/15/25 23:59 23:59 23:59 23:59 Intake Total 100 1770 884 Output Total 350 1350 8513 900 Balance -250 722 -8727 -648 Meds/Results Medications: Active Medications Generic Name Dose Route Start Last Admin Trade Name Freq PRN Reason Stop Dose Admin Acetaminophen 650 mg 08/12/25 16:30 Acetaminophen 325 Mg Tablet PO Q4H PRN Mild Pain (1-3) or Fever Dextrose 12.5 gm 08/13/25 08:02 Dextrose 50% 25 Gm/50 Ml Syringe IV PUSH PRN PRN Hypoglycemia Protocol Duloxetine HCl 30 mg 08/13/25 09:00 08/14/25 08:22 Duloxetine Hcl 30 Mg Capsule. PO 30 mg DAILY RICHIE Administration Duloxetine HCl 60 mg 08/13/25 09:00 08/14/25 08:22 Duloxetine Hcl 60 Mg Capsule. PO 60 mg DAILY RICHIE Administration Enoxaparin Sodium 40 mg 08/14/25 09:00 08/14/25 08:23 Enoxaparin 40 Mg/0.4 Ml Syringe SUB-Q 40 mg DAILY RICHIE Administration Gabapentin 200 mg 08/13/25 09:00 08/14/25 16:27 Gabapentin 100 Mg Capsule PO 200 mg TID RICHIE Administration Glucagon 1 mg 08/13/25 08:02 Glucagon For Inj 1 Mg Vial IM PRN PRN Hypoglycemia Protocol Glucose 15 gm 08/13/25 08:02 Glucose Oral Gel 15 Gm Of Glucse In 37.5 Gm Tube PO PRN PRN Hypoglycemia Protocol Dextrose 1,000 mls @ 100 mls/hr 08/13/25 08:02 Dextrose 5% 1,000 Ml IVPB PRN PRN Hypoglycemia Protocol Ceftriaxone Sodium 1 gm/ 50 mls @ 100 mls/hr 08/13/25 11:20 08/14/25 08:52 Sodium Chloride IVPB Infused QAM RICHIE Infusion Insulin Aspart 2 - 5 units 08/13/25 08:00 08/14/25 17:08 Insulin Aspart (*Bkc) 100 Units/Ml SUB-Q 3 units TIDWM RICHIE Administration Protocol Insulin Glargine 18 units 08/14/25 21:00 08/14/25 21:12 Insulin Glargine (*Bkc) 100 Units/Ml SUB-Q 18 units HS RICHIE Administration Levothyroxine Sodium 75 mcg 08/14/25 06:30 08/15/25 05:36 Levothyroxine Sodium 75 Mcg Tablet PO 75 mcg DAILY@0630 RICHIE Administration Metoprolol Tartrate 25 mg 08/13/25 09:00 08/14/25 16:27 Metoprolol Tartrate 25 Mg Tablet PO 25 mg BID RICHIE Administration Mirtazapine 7.5 mg 08/13/25 21:00 08/14/25 21:11 Mirtazapine 7.5 Mg Tablet PO 7.5 mg HS RICHIE Administration Pantoprazole Sodium 40 mg 08/13/25 09:00 08/14/25 08:23 Pantoprazole 40 Mg Tablet PO 40 mg QAM RICHIE Administration Pravastatin Sodium 40 mg 08/13/25 09:00 08/14/25 08:24 Pravastatin Sodium 20 Mg Tablet PO 40 mg DAILY RICHIE Administration Tramadol HCl 50 mg 08/13/25 09:00 08/14/25 16:27 Tramadol Hcl (*Crx) 50 Mg Tablet PO 50 mg BID RICHIE Administration Radiology Results: ITS Impressions Chest X-Ray 08/12/25 13:16 IMPRESSION: 1. No acute cardiopulmonary findings given portable technique. Head CT 08/12/25 15:49 Impression: 1.No acute intracranial abnormality. Labs Labs: Laboratory Results - last 24 hr 08/13/25 08/14/25 08/14/25 06:17 11:37 16:36 WBC RBC Hgb Hct MCV MCH MCHC RDW Plt Count MPV Immature Gran % (Auto) Neut % (Auto) Lymph % (Auto) [place] % (Auto) Eos % (Auto) Baso % (Auto) Lymph # (Auto) [place] # (Auto) Eos # (Auto) Baso # (Auto) Abs Immat Gran (auto) Absolute Neuts (auto) Absolute Nucleated RBC Nucleated RBC % Sodium Potassium Chloride Carbon Dioxide Anion Gap BUN Creatinine Estim Creat Clear Calc Estimated GFR Glucose POC Capillary Glucose 190 H 295 H Calcium Total Bilirubin AST ALT Alkaline Phosphatase Total Protein Albumin Free T3 pg/mL 2.2 08/14/25 08/15/25 21:03 06:06 WBC 5.4 RBC 3.68 L Hgb 11.1 L Hct 34.4 L MCV 93.5 MCH 30.2 MCHC 32.3 RDW 13.2 Plt Count 207 MPV 10.9 H Immature Gran % (Auto) 0.9 H Neut % (Auto) 64.7 Lymph % (Auto) 20.4 [place] % (Auto) 9.5 H Eos % (Auto) 3.9 Baso % (Auto) 0.6 Lymph # (Auto) 1.10 [place] # (Auto) 0.5 Eos # (Auto) 0.2 Baso # (Auto) 0.0 Abs Immat Gran (auto) 0.05 H Absolute Neuts (auto) 3.5 Absolute Nucleated RBC 0.000 Nucleated RBC % 0.0 Sodium 133 L Potassium 4.2 Chloride 98 Carbon Dioxide 27 Anion Gap 8 BUN 27 H Creatinine 1.03 H Estim Creat Clear Calc 42 Estimated GFR 52 L Glucose 217 H POC Capillary Glucose 309 H Calcium 9.0 Total Bilirubin 0.5 AST 22 ALT 13 Alkaline Phosphatase 76 Total Protein 6.8 Albumin 3.5 Free T3 pg/mL Quality VTE Prophylaxis VTE prophylaxis: pharmacologic ordered
[2025-08-15 08:51] VITALS: PULSE 60
[2025-08-15] MEDS: METOPROLOL TARTRATE 25 MG TABLET PO (08:51)
[2025-08-15] MEDS: traMADol HCL (*CRX) 50 MG TABLET PO (08:51)
[2025-08-15] MEDS: DULoxetine HCL 60 MG CAPSULE.DR PO (08:51)
[2025-08-15] MEDS: GABAPENTIN 100 MG CAPSULE 200 MG PO (08:51)
[2025-08-15] MEDS: PRAVASTATIN SODIUM 20 MG TABLET 40 MG PO (08:51)
[2025-08-15] MEDS: ENOXAPARIN 40 MG/0.4 ML SYRINGE SUB-Q (08:51)
[2025-08-15] MEDS: PANTOPRAZOLE 40 MG TABLET PO (08:51)
[2025-08-15] MEDS: cefTRIAXone 1 GM in SODIUM CHLORIDE 0.9% IV 50 ML 100 ML IVPB (08:52)
[2025-08-15 14:00] VITALS: BP 93/37; PULSE 58; RESP 18; TEMP 36.6; O2SAT 98
[2025-08-15 20:05] VITALS: BP 132/57; PULSE 62; RESP 16; TEMP 36.7; O2SAT 98
[2025-08-15] MEDS: INSULIN GLARGINE (*BKC) 100 UNITS/ML 18 UNITS SUB-Q (21:44)
[2025-08-15] MEDS: MIRTAZAPINE 7.5 MG TABLET PO (21:44)
[2025-08-16] MEDS: ACETAMINOPHEN 325 MG TABLET 650 MG PO (00:01)
[2025-08-16 05:37] VITALS: BP 108/57; PULSE 76; RESP 18; TEMP 36.6; O2SAT 96
[2025-08-16] MEDS: LEVOTHYROXINE SODIUM 75 MCG TABLET PO (06:06)
[2025-08-16 06:46] LABS: Hematocrit 35.4 % (37.0-47.0); Hemoglobin 11.2 g/dL (12.0-15.0); Immature Granulocyte Percent A 0.6 % (0-0.5); Lymphocytes Absolute Auto 1.38 K/mm3 (0.9-3.2); Mean Corpuscular HGB Conc 31.6 g/dl (32-36); Mean Corpuscular Hemoglobin 29.4 pg (26-34); Mean Corpuscular Volume 92.9 fl (80-100); Nucleated Red Blood Cells Absolute Auto 0.000 K/mm3 (0.0-0.012); Nucleated Red Blood Cells Perc 0.0 % (0.0-0.2); Platelet Count Result 202 k/mm3 (150-375); Red Blood Count 3.81 M/mm3 (4.2-5.4); White Blood Count 6.6 K/mm3 (4.5-10.0)
[2025-08-16 07:09] LABS: Alanine Aminotransferase 18 U/L (6-35); Albumin Level 3.3 g/dL (3.5-5.1); Alkaline Phosphatase 79 U/L (38-126); Anion Gap 6 mmol/L (4-12); Aspartate Amino Transferase 29 U/L (14-36); Bilirubin,Total 0.6 mg/dL (0.2-1.3); Blood Urea Nitrogen 26 mg/dL (7-17); Calcium 8.8 mg/dL (8.4-10.2); Carbon Dioxide 26 mmol/L (22-30); Chloride 103 mmol/L (98-107); Estimated CRCL calculation 41 ml/min; Estimated Glomerular Filt Rate 50; Glucose 95 mg/dL (65-110); Potassium 3.9 mmol/L (3.4-5.0); Sodium 135 mmol/L (137-145); Total Protein 6.5 g/dL (6.3-8.2)
[2025-08-16 08:00] VITALS: PULSE 76; RESP 18; O2SAT 96
--- NOTE | 2025-08-16 09:23 | P.CDI_ITS ---
CDI Query Clarification Request Encephalopathy has been documented. Please clarify type of encephalopathy: * Metabolic * Toxic * Hepatic * Hypertensive * Other * Unable to Determine Assessment and Plan (1) Encephalopathy: Code(s): G93.40 - Encephalopathy, unspecified Status: Acute Assessment and Plan: * patient presented lethargic, AxO x1. * CT head with no acute process * likely secondary to UTI vs. viral illness given cough, congestion, sore throat. COVID/Flu/RSV negative * A&O x3 this morning, however very tired on exam (2) Urinary tract infection, recurrent: Code(s): N39.0 - Urinary tract infection, site not specified Status: Acute Assessment and Plan: * leuks 3+, urine WBC>100, urine bacteria +4 * has remote history of ESBL and many allergies * presented with AMS as above. * was given Levaquin in ED * continue Rocephin * Blood cultures NGTD * Urine culture shows growth of Gram-negative bacilli RFX UR CX DUE TO ABN UA R82.90 Final 08/15/25-2307 LC Organism: Proteus mirabilis. *ABNORMAL* <Linda Solis RN - Last Filed: 08/16/25 09:33> Clarified Diagnosis Clarified Diagnosis: Metabolic encephalopathy <El Abreu PA-C - Last Filed: 08/16/25 09:48>
--- NOTE | 2025-08-16 09:23 | WPDCDIQUERY2 ---
CDI Query Clarification Request Encephalopathy has been documented. Please clarify type of encephalopathy: Metabolic Toxic Hepatic Hypertensive Other Unable to Determine Assessment and Plan (1) Encephalopathy: Code(s): G93.40 - Encephalopathy, unspecified Status: Acute Assessment and Plan: patient presented lethargic, AxO x1. CT head with no acute process likely secondary to UTI vs. viral illness given cough, congestion, sore throat. COVID/Flu/RSV negative A&O x3 this morning, however very tired on exam (2) Urinary tract infection, recurrent: Code(s): N39.0 - Urinary tract infection, site not specified Status: Acute Assessment and Plan: leuks 3+, urine WBC>100, urine bacteria +4 has remote history of ESBL and many allergies presented with AMS as above. was given Levaquin in ED continue Rocephin Blood cultures NGTD Urine culture shows growth of Gram-negative bacilli RFX UR CX DUE TO ABN UA R82.90 Final 08/15/25-2306 LC Organism: Proteus mirabilis. *ABNORMAL* <Linda Solis RN - Last Filed: 08/16/25 09:33> Clarified Diagnosis Clarified Diagnosis: Metabolic encephalopathy <El Abreu PA-C - Last Filed: 08/16/25 09:48>
[2025-08-16] MEDS: traMADol HCL (*CRX) 50 MG TABLET PO ×2 (10:00→17:55)
[2025-08-16] MEDS: METOPROLOL TARTRATE 25 MG TABLET PO ×2 (10:00→17:54)
[2025-08-16] MEDS: GABAPENTIN 100 MG CAPSULE 200 MG PO ×3 (10:00→17:54)
[2025-08-16] MEDS: PRAVASTATIN SODIUM 20 MG TABLET 40 MG PO (10:00)
[2025-08-16] MEDS: ENOXAPARIN 40 MG/0.4 ML SYRINGE SUB-Q (10:01)
[2025-08-16] MEDS: cefTRIAXone 1 GM in SODIUM CHLORIDE 0.9% IV 50 ML 100 ML IVPB (10:01)
[2025-08-16] MEDS: PANTOPRAZOLE 40 MG TABLET PO (10:01)
[2025-08-16] MEDS: DULoxetine HCL 60 MG CAPSULE.DR PO (10:01)
--- NOTE | 2025-08-16 13:29 | P.DS_ITS ---
DS: Admitting Diagnosis Discharge Date 08/16/2025 Admitting Diagnosis Encephalopathy, UTI DS: Discharge Diagnosis Discharge Diagnosis (1) Encephalopathy: Code(s): G93.40 - Encephalopathy, unspecified Status: Acute Assessment and Plan: * patient presented lethargic, AxO x1. * CT head with no acute process * likely secondary to UTI vs. viral illness given cough, congestion, sore throat. COVID/Flu/RSV negative * A&O x3 this morning, however very tired on exam (2) Urinary tract infection, recurrent: Code(s): N39.0 - Urinary tract infection, site not specified Status: Acute Assessment and Plan: * leuks 3+, urine WBC>100, urine bacteria +4 * has remote history of ESBL and many allergies * presented with AMS as above. * was given Levaquin in ED * continue Rocephin * Blood cultures NGTD * Urine culture shows growth of Gram-negative bacilli (3) Essential (primary) hypertension: Code(s): I10 - Essential (primary) hypertension Status: Acute Assessment and Plan: * continue home medication (4) Type 2 diabetes mellitus without complication: Code(s): E11.9 - Type 2 diabetes mellitus without complications Status: Acute Assessment and Plan: * hold metformin * accuchecks ACHS * low dose SSI * hypoglycemia management protocol * Glucose levels well maintained (5) Major depressive disorder, single episode, unspecified: Code(s): F32.9 - Major depressive disorder, single episode, unspecified Status: Acute Assessment and Plan: * continue home medication Plan Code Status: Full code DVT prophylaxis: Lovenox Disposition: patient is a group home pt at [facility], plans to return DS: Summary Hospital Course Reason for hospitalization: Altered mental status Hospital Course: 80-year-old female with a PMHx: of dementia, frequent UTI, currently resides in a long-term care facility, was brought into the emergency room via EMS with complaints may by staff the patient was difficult to be aroused. During interview patient is A&O x2 she tells me that she recently went to worship when she returned home she became very weak, patient also tells me that she currently resides with her parents. Her history is not consistent with chart review. Patient is pleasant, follows commands, she denies any complaints at this time. She is a poor historian, unable to tell me what daily medication she takes at this time, or recall why she is being seen in the hospital. ED workup revealed: Patient arrives to the ED with difficulty to be aroused and lethargy, vital signs are unremarkable, patient exam showed no pain or distress she was only oriented to her name, differential diagnosis were dehydration electrolyte imbalance a blood workup revealed CBC CMP troponin blood culture coags TSH. chest x-ray showed no acute abnormalities, EKG was a normal sinus rhythm at 61 beats per minute occasional PVCs no previous EKG available for comparison CT head without contrast showed no acute abnormality. Patient admitted in the setting of urinary tract infection. By 08/13, patient had approved to A&O x3. We are unclear baseline mentation status but she does have documented dementia and a legal guardian. Urine culture obtained and resulted with Proteus mirabilis with widespread resistivity, however she is susceptible to cefpodoxime. Imaging otherwise unremarkable for any acute findings. Blood cultures obtained which did not show any growth to date. Mental status otherwise has returned to baseline. Acute metabolic encephalopathy likely secondary to underlying urinary tract infection, which has been treated appropriately. Patient otherwise hemodynamically stable. She has remained without leukocytosis or fever, with stable electrolytes and vital signs. She stable for discharge on 08/16 with return back to [facility]. Will give additional 2 days cefpodoxime to be taken orally. Patient is amenable to this plan. Plan for discharge at this time. Status at Discharge Functional status at discharge: uses cane/walker Overall status at discharge: patient is progressing back to baseline Time Spent with Patient Time attestation: Total time spent providing and/or coordinating discharge services: 32 Exam Narrative: General: NAD Eyes: EOMI ENT: neck supple Cardiovascular: Regular rate and rhythm Respiratory: Clear to auscultation, respirations even and unlabored on RA Gastrointestinal: Soft, non tender Genitourinary: no suprapubic tenderness Musculoskeletal: No edema Skin: warm, dry Neuro: Alert and oriented x3. Psych: Mood appropriate DS: Data Data Completed and Pending Labs on day of discharge: Labs from last 24 hours 08/16/25 08/16/25 08/16/25 11:22 07:38 06:25 WBC 6.6 RBC 3.81 L Hgb 11.2 L Hct 35.4 L MCV 92.9 MCH 29.4 MCHC 31.6 L RDW 13.4 Plt Count 202 MPV 10.7 H Immature Gran % (Auto) 0.6 H Neut % (Auto) 67.0 Lymph % (Auto) 20.9 [place] % (Auto) 7.1 Eos % (Auto) 3.8 Baso % (Auto) 0.6 Lymph # (Auto) 1.38 [place] # (Auto) 0.5 Eos # (Auto) 0.3 Baso # (Auto) 0.0 Abs Immat Gran (auto) 0.04 H Absolute Neuts (auto) 4.4 Absolute Nucleated RBC 0.000 Nucleated RBC % 0.0 Sodium 135 L Potassium 3.9 Chloride 103 Carbon Dioxide 26 Anion Gap 6 BUN 26 H Creatinine 1.07 H Estim Creat Clear Calc 41 Estimated GFR 50 L Glucose 95 POC Capillary Glucose 101 87 Calcium 8.8 Total Bilirubin 0.6 AST 29 ALT 18 Alkaline Phosphatase 79 Total Protein 6.5 Albumin 3.3 L 08/15/25 08/15/25 21:50 16:46 WBC RBC Hgb Hct MCV MCH MCHC RDW Plt Count MPV Immature Gran % (Auto) Neut % (Auto) Lymph % (Auto) [place] % (Auto) Eos % (Auto) Baso % (Auto) Lymph # (Auto) [place] # (Auto) Eos # (Auto) Baso # (Auto) Abs Immat Gran (auto) Absolute Neuts (auto) Absolute Nucleated RBC Nucleated RBC % Sodium Potassium Chloride Carbon Dioxide Anion Gap BUN Creatinine Estim Creat Clear Calc Estimated GFR Glucose POC Capillary Glucose 126 H 117 H Calcium Total Bilirubin AST ALT Alkaline Phosphatase Total Protein Albumin Preliminary micro results at discharge 08/12/25 12:41 Blood Culture - Preliminary Blood 08/12/25 12:47 Blood Culture - Preliminary Blood Discharge Plan Discharge Attending physician on discharge: Saurabh Ndiaye Consulting providers: Bianka Ahuja; El Abreu Discharging Clinician: El Abreu Anticipated Discharge Date/Time: 08/16/25 13:19 [facility]position[facility] Activity: no straining and as tolerated Diet: regular Discharge Instructions: Discharge disposition: [facility] Take medications as prescribed. You will be prescribed Cefpodoxime for 2 additional days. Monitor blood pressures Take caution while standing, rising, or moving Change positions slowly taking a break between each position change If you standing feel dizzy sit back down and take a break Encouraged to continue with yearly vaccinations Return to the emergency department if he developed sudden shortness of breath, chest pain, nausea, vomiting, upset stomach or intractable diarrhea Return to the emergency department if you develop fever greater than 101.5 Follow-up with the primary care physician within 1-2 weeks Thank you for [facility] for your healthcare needs Patient Instructions: Antibiotic Form Patient Language: Algerian Stand Alone Forms: General Discharge Information Follow-up/Referrals: Celestina,MD Rob [Primary Care Provider, Unknown] Discharge Medications: New cefpodoxime 100 mg tablet 100 mg PO Q12H Qty: 4 0RF Rx Instructions: must administer with a meal/food Continued acetaminophen 500 mg tablet 500 mg PO TID PRN (Reason: pain) furosemide 20 mg tablet 20 mg PO DAILY gabapentin 100 mg capsule 200 mg PO TID duloxetine 30 mg capsule,delayed release(DR/EC) 30 mg PO DAILY duloxetine 60 mg capsule,delayed release(DR/EC) 60 mg PO DAILY Glucagon Emergency Kit (human) 1 mg recon soln 1 mg IM PRN insulin glargine-yfgn 100 unit/mL solution 25 unit SUBCUT QPM lansoprazole 15 mg capsule,delayed release(DR/EC) 15 mg PO DAILY mirtazapine 7.5 mg tablet 7.5 mg PO HS tramadol 50 mg tablet 50 mg PO BID insulin aspart U-100 100 unit/mL solution See Rx Instructions .ROUTE .COMPLEX Rx Instructions: Sliding scale levothyroxine 50 mcg tablet 75 mcg PO DAILY pravastatin 40 mg tablet 40 mg PO DAILY Qty: 90 0RF metoprolol tartrate 25 mg tablet 25 mg PO BID Qty: 60 2RF Rx Instructions: short supply Discontinued Al hyd-Mg tr-alg ac-sod bicarb 80-14.2 mg tablet,chewable 2 tablet PO PRN Date of admission: 08/15/25 13:35 Primary Care Provider: CelestinaRob Admitting Provider: Marie Devine Attending physician on admission: Marie Devine Condition: Stable Quality VTE Prophylaxis VTE prophylaxis: pharmacologic ordered
[2025-08-16 14:00] VITALS: BP 110/50; PULSE 66; RESP 16; TEMP 36.6; O2SAT 100
== END 2025-08-16 20:55 | DRG 689 ==
LOC: ANHED 12:40 → ANH3MEDSUR 17:32
PROVIDERS: Nurse Practitioner; Physician Assistant; Admitting Provider Internal Medicine; Emergency Provider Emergency Medicine; PCP Internal Medicine; Visit Provider Physician Assistant
DX: N39.0 Urinary tract infection, site not specified (principal); G93.41 Metabolic encephalopathy; E11.9 Type 2 diabetes mellitus without complications; F22 Delusional disorders; F32.9 Major depressive disorder, single episode, unspecified; E86.0 Dehydration; I10 Essential (primary) hypertension; B96.4 Proteus (mirabilis) (morganii) as the cause of diseases classified elsewhere; F03.90 Unspecified dementia, unspecified severity, without behavioral disturbance, psychotic disturbance, mood disturbance, and anxiety; Z77.22 Contact with and (suspected) exposure to environmental tobacco smoke (acute) (chronic); Z79.84 Long term (current) use of oral hypoglycemic drugs; Z87.440 Personal history of urinary (tract) infections; Z86.73 Personal history of transient ischemic attack (TIA), and cerebral infarction without residual deficits; Z28.82 Immunization not carried out because of caregiver refusal
CPT/HCPCS: 36415; 70450; 71045; 80053; 81001; 82948; 83605; 83735; 84439; 84443; 84481; 84484; 85025; 85610; 85730; 86140; 87040; 87086; 87186; 87637; 93005; 96361; 96365; 96367; 99285; A9270; G0378; J0696; J1650; J1815; J1956; J7030

== ENCOUNTER 2025-11-17 08:34 | Emergency (ER) | payer MEDICAID, SELFPAY ==
--- NOTE | ~2025-11-17 | CT_ITS ---
CT HEAD NON-CONTRAST CT C-SPINE Clinical History: fall Comparison: 08/12/2025 Technique: Unenhanced axial images skull base to vertex. Coronal, sagittal reformats. Axial images thoracic inlet to skull base. Sagittal and coronal reformats. CT images acquired with automatic exposure control for dose reduction DLP: 605 mGy-cm Findings: Head: Global atrophy. Basal ganglia lacunae. Chronic white matter microvascular ischemic changes. Sulci, ventricles: Unremarkable. No intracerebral hemorrhage. No evidence acute territorial infarct. No mass effect, midline shift, intra-/extra-axial fluid collection. Bony calvarium intact. Visualized paranasal sinuses: Clear. Mastoid air cells: Clear. Left scalp vertex conclusion. C-spine: No acute fracture. Grade 1 retrolisthesis C2 on 3. Moderate degenerative changes, with ankylosis and/or fusion C4-6. Prevertebral soft tissues within normal limits. Visualized lung apices: 4 mm nodule left side. Visualized thyroid: Unremarkable. No enlarged cervical nodes. IMPRESSION: HEAD: 1. No acute intracranial findings. C-SPINE: 1. No acute fracture. Reviewed, dictated and finalized at location [facility]. [facility] IMPRESSION: HEAD: 1. No acute intracranial findings. C-SPINE: 1. No acute fracture.
[2025-11-17 08:26] VITALS: BP 160/54; PULSE 58; RESP 16; TEMP 36.4; O2SAT 96
--- NOTE | 2025-11-17 09:24 | ED.FALL ---
HPI - Fall General Chief Complaint: Fall Stated Complaint: fall Time Seen by Provider: 11/17/25 09:23 Source: patient and EMS Mode of arrival: EMS Limitations: no limitations History of Present Illness HPI Narrative: 80 years old white female, longterm, ambulance, fell out of a maryan during transportation, was assisted slowly down to the ground. No loss of consciousness Complaining of neck pain Related Data Home Medications ?Medication ?Instructions ?Recorded ?Confirmed ?Last Taken ?Type acetaminophen 500 mg tablet 500 mg PO TID PRN pain 08/12/25 08/12/25 Unknown History duloxetine 30 mg capsule,delayed 30 mg PO DAILY 08/12/25 08/12/25 Unknown History release duloxetine 60 mg capsule,delayed 60 mg PO DAILY 08/12/25 08/12/25 Unknown History release furosemide 20 mg tablet 20 mg PO DAILY 08/12/25 08/12/25 Unknown History gabapentin 100 mg capsule 200 mg PO TID 08/12/25 08/12/25 Unknown History glucagon 1 mg solution for 1 mg IM PRN 08/12/25 08/12/25 Unknown History injection (Glucagon Emergency Kit) insulin aspart U-100 100 unit/mL See Rx Instructions .Route .COMPLEX 08/12/25 08/12/25 Unknown History subcutaneous solution insulin glargine-yfgn 100 unit/mL 25 unit subcut QPM 08/12/25 08/12/25 Unknown History subcutaneous solution lansoprazole 15 mg capsule,delayed 15 mg PO DAILY 08/12/25 08/12/25 Unknown History release levothyroxine 50 mcg tablet 75 mcg PO DAILY 08/12/25 08/12/25 Unknown History mirtazapine 7.5 mg tablet 7.5 mg PO HS 08/12/25 08/12/25 Unknown History tramadol 50 mg tablet 50 mg PO BID 08/12/25 08/12/25 Unknown History Allergies Allergy/AdvReac Type Severity Reaction Status Date / Time clindamycin Allergy Mild Unknown Verified 08/12/25 18:51 hydrocodone Allergy Mild nausea Verified 08/12/25 18:51 amoxicillin Allergy Unknown Unknown Verified 08/15/25 08:09 ampicillin Allergy Unknown Unknown Verified 08/15/25 08:09 erythromycin base Allergy Unknown Unknown Verified 08/12/25 18:51 Macrolide Antibiotics Allergy Unknown Unknown Verified 08/12/25 18:51 morphine Allergy Unknown nausea Verified 08/12/25 18:51 NSAIDS (Non-Steroidal Allergy Unknown Unknown Verified 08/12/25 18:51 Anti-Inflamma Penicillins Allergy Unknown Unknown Verified 08/15/25 08:09 adhesive tape AdvReac Mild BLISTERS Verified 08/12/25 18:51 PMFSH Past Medical History Medical History Ataxia BMI 23.0-23.9, adult Urinary tract infection, recurrent Delusional disorder Encephalopathy History of stroke Family History Family History Mother Hypertension Family history of diabetes mellitus in first degree relative Family history of pancreatic cancer Family history of heart disease in male family member before age 55 Family history of rheumatoid arthritis Family history of neuropathy Father Family history of diabetes mellitus in first degree relative Family history of coronary artery disease Family history of heart disease in male family member before age 55 Sibling Family history of coronary artery disease Hypertension Family history of heart disease in male family member before age 55 Social History Social History Smoking status: Never smoker Second hand tobacco smoke exposure: No Alcohol intake: unknown Substance use: unknown Substance use type: does not use Living arrangements: with family Occupation/Education: retired Additional occupation/education comments: [employer] Gender identity (if verbalized by the patient): Female Spiritual care concerns: No Exam Narrative: General appearance: Well-developed, well-nourished Skin: Normal color Head: Normocephalic, nontraumatic, hematoma Eyes: Clear conjunctiva ENT: Oropharynx normal, ears normal, nose normal Neck: Supple, nontender Chest and respiratory: Airway patent, no respiratory distress, no accessory muscle use Heart: Regular rate/rhythm Abdomen: Soft, nontender, no organomegaly, quiet bowel sounds Vascular: Normal peripheral pulses, normal capillary refill. 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 tested, no gross motor deficit Course Vital Signs Vital signs: Vital Signs Temperature 36.4 C 11/17/25 08:26 Pulse Rate 58 L 11/17/25 08:26 Respiratory Rate 16 11/17/25 08:26 Blood Pressure 160/54 H 11/17/25 08:26 Pulse Oximetry 96 11/17/25 08:26 Oxygen Delivery Room Air 11/17/25 08:26 Temperature 36.4 C 11/17/25 08:26 Pulse Rate 58 L 11/17/25 08:26 Respiratory Rate 16 11/17/25 08:26 Blood Pressure 160/54 H 11/17/25 08:26 Pulse Oximetry 96 11/17/25 08:26 Oxygen Delivery Room Air 11/17/25 08:26 MDM Differential Diagnosis Differential Diagnosis: Impressions Cervical Spine CT 11/17/25 09:07 IMPRESSION: HEAD: 1. No acute intracranial findings. C-SPINE: 1. No acute fracture. Head CT 11/17/25 09:07 IMPRESSION: HEAD: 1. No acute intracranial findings. C-SPINE: 1. No acute fracture. Imaging Data Radiologist's impression: ITS Impressions Cervical Spine CT 11/17/25 09:07 IMPRESSION: HEAD: 1. No acute intracranial findings. C-SPINE: 1. No acute fracture. Head CT 11/17/25 09:07 IMPRESSION: HEAD: 1. No acute intracranial findings. C-SPINE: 1. No acute fracture. Discharge Plan Discharge Clinical Impression: CHI (closed head injury), Cervicalgia Patient Disposition: NH [facility] Condition: Stable Instructions: Head Injury (ED), Neck Pain (ED) Additional Instructions: Return if symptoms are worsening , call your family physician for appointment, take Tylenol as as needed for aches and pain, continue home medications. Patient Language: Urdu Prescriptions: No Action acetaminophen 500 mg tablet 500 mg PO TID PRN (Reason: pain) furosemide 20 mg tablet 20 mg PO DAILY gabapentin 100 mg capsule 200 mg PO TID duloxetine 30 mg capsule,delayed release(DR/EC) 30 mg PO DAILY duloxetine 60 mg capsule,delayed release(DR/EC) 60 mg PO DAILY Glucagon Emergency Kit (human) 1 mg recon soln 1 mg IM PRN insulin glargine-yfgn 100 unit/mL solution 25 unit SUBCUT QPM lansoprazole 15 mg capsule,delayed release(DR/EC) 15 mg PO DAILY mirtazapine 7.5 mg tablet 7.5 mg PO HS tramadol 50 mg tablet 50 mg PO BID insulin aspart U-100 100 unit/mL solution See Rx Instructions .ROUTE .COMPLEX Rx Instructions: Sliding scale levothyroxine 50 mcg tablet 75 mcg PO DAILY cefpodoxime 100 mg tablet 100 mg PO Q12H Qty: 4 0RF Rx Instructions: must administer with a meal/food pravastatin 40 mg tablet 40 mg PO DAILY Qty: 90 0RF metoprolol tartrate 25 mg tablet 25 mg PO BID Qty: 60 2RF Rx Instructions: short supply Follow-up/Referrals: Celestina,MD Rob [Primary Care Provider, Unknown]
--- OUTSIDE RECORDS SUMMARY | 2025-11-17 09:50 | XMS_ITS | Patient Health Record ---
Author Organization [facility] [employer] Address [address] [place] [address] Care Team Providers Care Exhibit Carpenter Name Role Phone Alden Danielle Unavailable [phone] Reason For Referral No Information Medications Medication [...] 1 gram VIAL (EA) INJECTION *Reorder from [employer] for eRx and Interaction Alerts* 05/26/2022 Active FLUAD 2019-20 67YR UP(PF)45 MCG(15 MCGX3)/0.5 ML INTRAMUSCULAR SYRINGE *Reorder from [employer] for eRx and Interaction Alerts* 05/26/2022 Active [...] PCV 13 Unknown 08/30/2017 Admini stered Novel [id number], preservative free Unknown 08/29/2018 Administered Asad Covid-19 [...] Replacemen t/[employer]vant[employer] - Ppo [address] [address] [place] [address] [id number] ANDREINA WILKERSON Self - patient is the insured
== END 2025-11-17 09:58 ==
PROVIDERS: Emergency Provider Emergency Medicine; PCP Internal Medicine
DX: S19.9XXA Unspecified injury of neck, initial encounter (principal); S09.90XA Unspecified injury of head, initial encounter; G93.40 Encephalopathy, unspecified; Z87.440 Personal history of urinary (tract) infections; Z86.73 Personal history of transient ischemic attack (TIA), and cerebral infarction without residual deficits; Y93.F2 Activity, caregiving, lifting; W17.89XA Other fall from one level to another, initial encounter
CPT/HCPCS: 70450; 72125; 99284